=== PATIENT | male | born 1970 | race Caucasian/White ===

== ENCOUNTER → 2019-03-06 12:38 | Outpatient (CLI) | payer MEDICAID, SELFPAY ==
--- NOTE | 2019-03-06 12:42 | MR_ITS ---
MR knee LT wo con HISTORY: Pain ITS.REASON: TEAR OF LATERAL COLLATERAL LIGAMENT, INTERNAL DERANGMENT LT ORDERING PHYSICIAN: Rambo Rivas MD PATIENT AGE: 48 years Comparison: 12/23/2018 TECHNIQUE: Standard multiplanar multiecho sequences are performed without contrast. FINDINGS: No evidence of cruciate ligament tear. The fibers of the ACL are somewhat sparse inferiorly and could represent an old injury or sprain. The collateral ligaments, patellar tendon, and quadriceps tendon are unremarkable. The menisci are intact. No evidence of meniscal tear.. Patellar cartilage is preserved. There is a small to medium size knee joint effusion mainly in the suprapatellar region. No bone bruise or other significant anomalies evident. IMPRESSION: 1. No evidence of meniscal tear.. 2. The fibers of the ACL are sparse inferiorly and could represent an old injury or sprain of the ACL 3. Small medium sized knee joint effusion
== END ==
PROVIDERS: PCP Family Medicine; Visit Provider Family Medicine
DX: S83.422D Sprain of lateral collateral ligament of left knee, subsequent encounter (principal); M23.92 Unspecified internal derangement of left knee
CPT/HCPCS: 73721

== ENCOUNTER → 2020-07-16 12:00 | Outpatient (CLI) | payer OTHER, SELFPAY ==
[2020-07-16 13:04] LABS: Basophils # 0.1 K/mm3 (0-0.2); Basophils % 0.7 % (0.1-2.0); Eosinophils # 0.2 K/mm3 (0.0-0.4); Eosinophils % 2.1 % (0.1-12.0); Hematocrit 56.3 % (42.0-52.0); Hemoglobin 17.8 g/dL (14.1-18.0); Lymphocytes # 1.5 K/mm3 (0.7-4.5); Lymphocytes % 17.5 % (10-50); Mean Corpuscular HGB Conc 31.5 g/dL (31.8-35.4); Mean Corpuscular Volume 101.5 fl (80-94); Mean Platelet Volume 6.8 fl (7.4-10.4); Monocytes # 0.6 K/mm3 (0.1-1.0); Monocytes % 7.4 % (1.7-9.3); Neutrophils # 6.2 K/mm3 (1.8-7.8); Neutrophils % 72.3 % (37.0-80.0); Platelet Count 325 K/mm3 (142-424); Red Blood Count 5.55 M/mm3 (4.60-6.20); Red Cell Distribution Width 12.8 % (11.5-17.5); White Blood Count 8.6 K/mm3 (4.8-10.8)
[2020-07-16 14:27] LABS: Alanine Aminotransferase 21 U/L (12-78); Albumin Level 4.8 g/dl (3.5-5.0); Albumin/Globulin Ratio 1.8 (1.1-1.8); Alkaline Phosphatase 66 U/L (38-126); Anion Gap 13.4 mEq/L (5-15); Aspartate Amino Transferase 25 U/L (17-59); Bilirubin,Total 0.5 mg/dl (0.2-1.3); Blood Urea Nitrogen 14 mg/dl (9-20); Calcium 10.3 mg/dl (8.4-10.2); Carbon Dioxide 32 mmol/L (22.0-30.0); Chloride 99 mmol/L (98-107); Chol/HDL Ratio 2.2 (1-3.5); Cholesterol 194 mg/dl (140-200); Estimated Glomerular Filt Rate 79 ml/min (>60); GFR (African American) 95 ML/MIN (>60); Globulin 2.6 g/dL (1.3-3.2); Glucose 85 mg/dl (74-100); HDL Cholesterol 87 mg/dl (40-60); Potassium 4.4 mmoL/L (3.5-5.1); Sodium 140 mmol/L (136-145); Total Protein,Serum 7.4 g/dl (6.3-8.2); Triglycerides 97 mg/dl (30-150); VLDL Cholesterol 19 mg/dL (0-40)
[2020-07-16 14:38] LABS: Direct LDL Cholesterol 94.64 mg/dL (100-129)
[2020-07-16 14:43] LABS: 25-OH Vitamin D, Total 39.4 ng/mL (30-100)
[2020-07-16 15:53] LABS: Thyroid Stimulating Hormone 1.76 uIU/mL (0.465-4.68)
[2020-07-16 16:11] LABS: Vitamin B12 522 pg/mL (239-931)
[2020-07-16 16:34] LABS: Coronavirus 19 IgG Antibody Negative (Negative); Coronavirus 19 IgM Antibody Negative (Negative)
== END ==
PROVIDERS: Visit Provider Nurse Practitioner Family
DX: Z03.818 Encounter for observation for suspected exposure to other biological agents ruled out (principal); R53.83 Other fatigue; Z13.220 Encounter for screening for lipoid disorders; Z12.5 Encounter for screening for malignant neoplasm of prostate
CPT/HCPCS: 36415; 80053; 80061; 82306; 82607; 84443; 85025; 86328; G0103

== ENCOUNTER 2020-10-26 09:23 | Emergency (ER) | payer OTHER, SELFPAY ==
[2020-10-26 09:43] VITALS: BP 148/88; PULSE 68; RESP 16; TEMP 37.1; O2SAT 98; BMI 25.3
--- NOTE | 2020-10-26 09:44 | HMH.EDUTC ---
[facility] [place] Clinical Impression: Viral syndrome, Exposure to COVID-19 virus Disposition: Home, Self-Care Condition on Discharge: Good Instructions: DI for COVID-19 (Suspected or Confirmed ), Preventing the Spread of Coronavirus Discharge Instructions Additional Instructions: Drink plenty of fluids. Take tylenol for pain or fever. Return if you begin to have difficulty breathing. Follow up with your regular doctor. GO TO THE ER FOR ANY WORSENING SYMPTOMS Referrals: PCP,No [Primary Care Provider] - Time of Disposition: 09:45 Medical Decision Making - Medical Records Medical records reviewed: No: I reviewed the patient's medical records. - Liban Inquiry Pt receiving controlled substance: No Vital Signs: 10/26/20 09:43 10/26/20 09:47 Temperature 98.7 F 98.6 F Temperature Source Oral Oral Pulse Rate 65 Pulse Rate [Right] 68 Respiratory Rate 16 16 Blood Pressure 142/86 H Blood Pressure [Right Arm] 148/88 H Blood Pressure Mean [Right Arm] 108 Blood Pressure Source [Right Arm] Automatic Cuff Blood Pressure Position [Right Arm] Sitting 02 Sat by Pulse Oximetry 98 Oxygen Delivery Method Room Air [facility] H[place] - General Stated complaint: Covid test; sore throat;cough Time Seen by Provider: 10/26/20 09:44 - History of Present Illness Provider Complaint: He is here needing to be tested for covid. He c/o head ache and malaise. - Related Data Previous Rx's Medication Instructions Recorded Ibuprofen [Ibuprofen 800mg 800 mg PO Q8HP PRN #30 tab 12/23/18 Tablet] Allergies Allergy/AdvReac Type Severity Reaction Status Date / Time No Known Allergies Allergy Verified 10/26/20 09:36 [facility] History - Hepatitis A Screen Attestation statement:: This patient has been screened for Hepatitis A risk factors. I have reviewed the patient's past medical history: Yes Medical History: Denies:: Diabetes Mellitus Type 2, Hypertension Laterality Cases: Bilateral: Tonsillectomy Other Surgeries: Yes: Cholecystectomy - Social History Smoking Status: Current every day smoker Tobacco Type: smokeless tobacco # Packs/Day (cigarettes): 1 Alcohol Intake: never Occupational Status: other Housing: other ROS Obtained: Yes All systems reviewed & no additional complaints - Constitutional Constitutional: Denies body ache, Denies chills, Denies fever(s), Denies poor appetite, Reports malaise - Eyes Eyes: Reports system reviewed and no additional complaints, except as docu - ENT Ears, Nose, Mouth, and Throat: Reports system reviewed and no additional complaints, except as docu - Cardiovascular Cardiovascular: Reports system reviewed and no additional complaints, except as docu - Respiratory Respiratory: Reports system reviewed and no additional complaints, except as docu - Gastrointestinal Gastrointestingal: Reports: system reviewed and no additional complaints, except as docu Physical Exam - General General appearance: alert, in no apparent distress - Head Head exam: atraumatic, normocephalic, normal inspection - Eye Eye exam: Present: normal appearance, PERRL, EOMI - ENT ENT exam: Present: normal exam, normal oropharynx, mucous membranes moist, TM's normal bilaterally, normal external ear exam - Neck Neck exam: Present: normal inspection, full ROM, trachea midline. Absent: meningismus, lymphadenopathy - Chest Chest inspection: Present: normal inspection, symmetric chest wall rise. Absent: tenderness - Respiratory Respiratory exam: Present: normal lung sounds bilaterally. Absent: respiratory distress - Cardiovascular Cardiovascular exam: Present: regular rate, normal rhythm. Absent: JVD - Abdominal Exam Abdominal exam: Present: soft, normal bowel sounds. Absent: distention, tenderness, guarding - Extremities Exam Extremities exam: Present: normal inspection, full ROM, normal capillary refill. Absent: calf tenderness - Back Exam Back exam: P
[2020-10-26 09:47] VITALS: BP 142/86; PULSE 65; RESP 16; TEMP 37
== END 2020-10-26 09:47 | disposition home or self-care (01) ==
PROVIDERS: Emergency Provider Nurse Practitioner Family
DX: Z20.822 Contact with and (suspected) exposure to COVID-19 (principal); B34.9 Viral infection, unspecified; F17.290 Nicotine dependence, other tobacco product, uncomplicated
CPT/HCPCS: 99202; G0463; U0003

== ENCOUNTER → 2020-11-15 12:21 | Outpatient (CLI) | payer OTHER, SELFPAY ==
--- NOTE | 2020-11-15 12:26 | US_ITS ---
PROCEDURE: US TESTICULAR CLINICAL INDICATION: TESTICULAR SWELLING, LEFT, LEFT TESTICULAR PAIN COMPARISON: No exams were available for comparison FINDINGS: Testicles are normal size and shape. Bilateral testicular blood flow noted. No testicular mass apparent. There is a small left hydrocele. The epididymi have an unremarkable appearance. No varicocele or spermatocele. IMPRESSION: Small left hydrocele otherwise negative testicular ultrasound Dictated by: Javier Castro MD 11/15/2020 13:46 Javier Castro MD in [place] 11/15/2020 13:46
== END ==
PROVIDERS: PCP Nurse Practitioner Family; Visit Provider Nurse Practitioner Family
DX: N50.89 Other specified disorders of the male genital organs (principal); N50.812 Left testicular pain
CPT/HCPCS: 76870

== ENCOUNTER 2021-01-06 07:48 | Emergency (ER) | payer OTHER, SELFPAY ==
[2021-01-06 07:49] VITALS: BP 153/94; PULSE 65; RESP 18; TEMP 36.8; O2SAT 99; BMI 24.6
[2021-01-06 07:54] VITALS: BP 153/94; PULSE 68; O2SAT 99
--- NOTE | 2021-01-06 08:00 | XR_ITS ---
PROCEDURE: XR KNEE LT 2V CLINICAL INDICATION: pain COMPARISON: No exams were available for comparison FINDINGS: No fracture or dislocation. No lytic or blastic change. There is normal mineralization. There are mild osteoarthritic changes involving all 3 compartments. Other findings:Small enthesophyte at the tibial tuberosity IMPRESSION: Mild osteoarthritis. No significant change from 12/23/2018 Dictated by: Javier Castro MD 01/06/2021 09:09 Javier Castro MD in [place] 01/06/2021 09:09
[2021-01-06 08:20] VITALS: BP 141/90; PULSE 61; O2SAT 100
--- NOTE | 2021-01-06 08:31 | HMH.EDGENADL ---
ED Disposition Clinical Impression: Left lateral knee pain Disposition: Home, Self-Care Condition on Discharge: Good Instructions: DI for Knee Pain, How to Use Crutches, How to Use a Knee Immobilizer Additional Instructions: Knee immobilizer and crutches as needed. Ibuprofen for pain. Follow-up with Dr. Hernandez, orthopedics, call for appointment. Referrals: Nicole Benoit APRN [Primary Care Provider] - Rianna Hernandez MD [Physician] - - Critical Care Critical Care Time: No Attestation: On 01/06/21, the high probability of a clinically significant, sudden or life threatening deterioration of the following system(s) required my full and direct attention, intervention and personal management. The time I documented below is in addition to time spent performing reported procedures but includes the following listed in this critical care notation. Medical Decision Making - Liban Inquiry Pt receiving controlled substance: No Vital Signs: 01/06/21 07:49 01/06/21 07:54 01/06/21 08:20 Temperature 98.2 F Temperature Source Oral Pulse Rate 68 61 Pulse Rate [Left Radial] 65 Respiratory Rate 18 Blood Pressure 153/94 H 141/90 H Blood Pressure [Right Arm] 153/94 H Blood Pressure Mean 110 106 Blood Pressure Mean [Right Arm] 113 Blood Pressure Source [Right Arm] Automatic Cuff Blood Pressure Position [Right Arm] Sitting 02 Sat by Pulse Oximetry 99 99 100 Oxygen Delivery Method Room Air Orders (Tests/Meds): ORDERS Category Date Time Status Knee XR left 2 views [XR knee LT 2V] Stat Exams 01/06/21 08:00 Taken - Radiology Data #1 Image(s): Knee Image Reviewed: Yes I reviewed the patient's radiology image No acute process. Possible old Nicole-Schlatter disease. Medical Decision Narrative: Symptoms suggest most likely exacerbation of his prior lateral collateral ligament injury or meniscus injury General Adult HPI - General Chief complaint: PAIN Stated complaint: left knee pain, no recent accident Time Seen by Provider: 01/06/21 08:35 Mode of Arrival: Ambulatory Limitations: No Limitations Description of Symptoms (Recalled from ER Triage Doc. by RN): c/o left knee pain really bad over the last month. Prior injuries years ago but Denies any new injuries. - History of Present Illness HPI narrative: Complains of lateral left knee pain for a month. At times he will get a severe pain that makes his knee want to give out. It will wake him up at night as well when he tries to turn over. No recent injury, but says years ago he had an injury to his LCL, surgery was discussed but not performed. - Related Data Previous Rx's Medication Instructions Recorded Ibuprofen [Ibuprofen 800mg 800 mg PO Q8HP PRN #30 tab 12/23/18 Tablet] Allergies Allergy/AdvReac Type Severity Reaction Status Date / Time No Known Allergies Allergy Verified 10/26/20 09:36 [facility] History - Hepatitis A Screen Drug use history?: No High risk sexual behaviors?: No History of sexually transmitted infection?: No Currently employed?: No Childcare worker?: No Do you have indoor plumbing?: Yes Do you have electricity?: Yes Attestation statement:: This patient has been screened for Hepatitis A risk factors. I have reviewed the patient's past medical history: Yes Medical History: Denies:: Diabetes Mellitus Type 2, Hypertension Laterality Cases: Bilateral: Tonsillectomy Other Surgeries: Yes: Cholecystectomy - Social History Smoking Status: Current every day smoker Tobacco Type: smokeless tobacco # Packs/Day (cigarettes): 1 Alcohol Intake: current Alcohol Intake Frequency:: a few times a month Occupational Status: employed Housing: other ROS Obtained: Yes Systems reviewed as appropriate & no additional complaints - Constitutional Constitutional: Denies fever(s) - Musculoskeletal Musculoskeletal: Reports as per HPI, Reports joint pain Physical Exam - General Gene
[2021-01-06 08:59] VITALS: BP 141/91; PULSE 61; RESP 18; TEMP 36.8; O2SAT 100
== END 2021-01-06 09:01 | disposition home or self-care (01) ==
PROVIDERS: Emergency Provider Emergency Medicine; PCP Nurse Practitioner Family
DX: M25.562 Pain in left knee (principal); F17.290 Nicotine dependence, other tobacco product, uncomplicated
CPT/HCPCS: 73560; 99282

== ENCOUNTER → 2021-01-31 12:15 | Outpatient (CLI) | payer OTHER, SELFPAY ==
--- NOTE | 2021-01-31 12:20 | XR_ITS ---
PROCEDURE: XR KNEE LT 4V CLINICAL INDICATION: LT knee Pain COMPARISON: CR [id number] KNEE-3 VIEWS-LT from 10/12/2015 CR [id number] XR knee LT 3V from 12/23/2018 CR XR KNEE LT 2V from 01/06/2021 FINDINGS: No fracture or dislocation. No lytic or blastic change. There is normal mineralization. Minimal osteoarthritic changes involving all 3 compartments similar to the previous exam. Other findings:None. IMPRESSION: Minimal osteoarthritis. No change with no acute finding Dictated by: Javier Castro MD 01/31/2021 15:58 Javier Castro MD in [place] 01/31/2021 15:58
== END ==
PROVIDERS: PCP Nurse Practitioner Family; Visit Provider Orthopaedic Surgery
DX: M25.562 Pain in left knee (principal)
CPT/HCPCS: 73564

== ENCOUNTER 2021-02-27 20:53 | Emergency (ER) | payer OTHER, SELFPAY ==
--- NOTE | 2021-02-27 20:50 | ECG_ITS ---
APPROVED REPORT Exam: Resting ECG HR:89 bpm ECG Measurements Heart Rate 89 AXES PA 144 P 86 QRSd 94 QRS 87 QT 368 T 71 QTc 447 Conclusion Normal sinus rhythm with sinus arrhythmia Normal ECG Electronically signed by : Rambo Levine, 03/01/2021 08:21:52
[2021-02-27 20:53] VITALS: BP 118/86; PULSE 95; RESP 24; TEMP 36.6; O2SAT 95; BMI 23.7
--- NOTE | 2021-02-27 20:58 | XR_ITS ---
PROCEDURE INFORMATION: Exam: XR Chest Exam date and time: 02/27/2021 8:58 PM Age: 50 years old Clinical indication: Shortness of breath; Patient HX: SOA for 1 hr, chest heaviness, smoker; Additional info: SOB TECHNIQUE: Imaging protocol: XR of the chest. Views: 1 view. COMPARISON: CR CXR CHEST(2 VIEWS-NOT PORTABLE) 01/29/2017 7:17 AM FINDINGS: Lungs: Emphysema. Relatively mild fibrotic changes at the lung bases. Ground-glass opacity at the right lower lung. No dense consolidation. Pleural spaces: Unremarkable. No pleural effusion. No pneumothorax. Heart/Mediastinum: Unremarkable. No cardiomegaly. Bones/joints: Unremarkable. IMPRESSION: Ground-glass opacity at the right lower lung appears to be new in the interval. Consider pneumonia in the appropriate clinical setting.
[2021-02-27 21:00] VITALS: BP 126/88; PULSE 84; O2SAT 93
[2021-02-27 21:01] LABS: ABG Base Excess -2.9 mmol/L (-2.4-2.3); ABG HCO3 21.6 mmhg (22.0-26.0); ABG Oxygen Saturation 94 % (90-100); ABG PCO2 34.4 mmhg (35.0-45.0); ABG PH 7.42 mmol/L (7.35-7.45); ABG PO2 62.8 mmhg (80-100); ABG TCO2 22.7 mmhg (23-27); Allen's Test Y; Oxygen R/A %; Source R/R
[2021-02-27 21:07] LABS: Basophils # 0.1 K/mm3 (0-0.2); Basophils % 0.6 % (0.1-2.0); Eosinophils # 0.4 K/mm3 (0.0-0.4); Eosinophils % 3.9 % (0.1-12.0); Hematocrit 49.3 % (42.0-52.0); Hemoglobin 16.5 g/dL (14.1-18.0); Lymphocytes # 2.7 K/mm3 (0.7-4.5); Lymphocytes % 29.9 % (10-50); Mean Corpuscular HGB Conc 33.4 g/dL (31.8-35.4); Mean Corpuscular Hemoglobin 32.3 pg (27.0-31.2); Mean Corpuscular Volume 96.7 fl (80-94); Mean Platelet Volume 7.2 fl (7.4-10.4); Monocytes # 0.5 K/mm3 (0.1-1.0); Monocytes % 5.2 % (1.7-9.3); Neutrophils # 5.4 K/mm3 (1.8-7.8); Neutrophils % 60.4 % (37.0-80.0); Platelet Count 351 K/mm3 (142-424); Red Cell Distribution Width 13.1 % (11.5-17.5); White Blood Count 8.9 K/mm3 (4.8-10.8)
[2021-02-27 21:18] LABS: Alanine Aminotransferase 23 U/L (12-78); Albumin Level 4.3 g/dl (3.5-5.0); Albumin/Globulin Ratio 1.7 (1.1-1.8); Alkaline Phosphatase 63 U/L (38-126); Anion Gap 14.6 mEq/L (5-15); Aspartate Amino Transferase 33 U/L (17-59); Bilirubin,Total 0.3 mg/dl (0.2-1.3); Blood Urea Nitrogen 9 mg/dl (9-20); Calcium 8.8 mg/dl (8.4-10.2); Carbon Dioxide 22 mmol/L (22.0-30.0); Chloride 110 mmol/L (98-107); Creatinine Clearance Estimated 97 mL/min (50-200); Estimated Glomerular Filt Rate 71 ml/min (>60); GFR (African American) 85 ML/MIN (>60); Globulin 2.6 g/dL (1.3-3.2); Glucose 101 mg/dl (74-100); Potassium 3.6 mmoL/L (3.5-5.1); Sodium 143 mmol/L (136-145); Total Protein,Serum 6.9 g/dl (6.3-8.2)
[2021-02-27 21:23] LABS: C-Reactive Protein 2.2 mg/L (0-4)
[2021-02-27 21:30] VITALS: BP 121/75; PULSE 79; O2SAT 97
[2021-02-27 21:32] LABS: Erythrocyte Sedimentation Rate 5 mm/hr (0-20)
--- NOTE | 2021-02-27 21:34 | HMH.EDSOB ---
ED Disposition Clinical Impression: Chest pain at rest Disposition: Left Against Medical Advice Condition on Discharge: Fair Instructions: DI for Chest Pain Additional Instructions: see pcp or card in am and return to ed if needed or change mind Referrals: Provider,Referral, [Referring] - - Critical Care Critical Care Time: No Attestation: On 02/27/21, the high probability of a clinically significant, sudden or life threatening deterioration of the following system(s) required my full and direct attention, intervention and personal management. The time I documented below is in addition to time spent performing reported procedures but includes the following listed in this critical care notation. Medical Decision Making - Medical Records Medical records reviewed: Yes: I reviewed the patient's medical records. - Liban Inquiry Pt receiving controlled substance: No Vital Signs: 02/27/21 20:53 02/27/21 21:00 02/27/21 21:30 Temperature 97.9 F Temperature Source Oral Pulse Rate 84 79 Pulse Rate [Right] 95 H Respiratory Rate 24 Blood Pressure 126/88 121/75 Blood Pressure [Right Arm] 118/86 Blood Pressure Mean [Right Arm] 96 02 Sat by Pulse Oximetry 95 93 L 97 Oxygen Delivery Method Room Air Room Air Room Air - Lab Data Lab results reviewed: Yes: I reviewed the patient's lab results. Lab Results 02/27/21 21:00: WBC 8.9, RBC 5.10, Hgb 16.5, Hct 49.3, MCV 96.7 H, MCH 32.3 H, MCHC 33.4, RDW 13.1, Plt Count 351, MPV 7.2 L, Neut % (Auto) 60.4, Lymph % (Auto) 29.9, Bledsoe % (Auto) 5.2, Eos % (Auto) 3.9, Baso % (Auto) 0.6, Neut # (Auto) 5.4, Lymph # (Auto) 2.7, Bledsoe # (Auto) 0.5, Eos # (Auto) 0.4, Baso # (Auto) 0.1 02/27/21 21:00: Sodium 143, Potassium 3.6, Chloride 110 H, Carbon Dioxide 22, Anion Gap 14.6, BUN 9, Creatinine 1.10, Estimated Creat Clear 97, Estimated GFR 71, Est GFR ( Amer) 85, Glucose 101 H, Calcium 8.8, Total Bilirubin 0.3, AST 33, ALT 23, Alkaline Phosphatase 63, Troponin I < 0.01, C-Reactive Protein 2.2, Total Protein 6.9, Albumin 4.3, Globulin 2.6, Albumin/Globulin Ratio 1.7 02/27/21 21:00: Specimen Source R/r, O2 % R/a, ABG pH 7.42, ABG pCO2 34.4 L, ABG pO2 62.8 L, ABG HCO3 21.6 L, ABG Total CO2 22.7 L, ABG O2 Saturation 94, ABG Base Excess -2.9 L, Javier Test Y 02/27/21 21:00: ESR 5 02/27/21 21:00: Procalcitonin 0.046 Result diagrams: 02/27/21 21:00 02/27/21 21:00 Orders (Tests/Meds): ED MEDICATIONS Generic Name Dose Route Start Last Admin Trade Name Freq PRN Reason Stop Dose Admin Sodium Chloride 1,000 mls @ 999 mls/hr 02/27/21 21:15 02/27/21 21:15 Sod Chlor 0.9% 1000ml Bag IV 02/27/21 22:15 999 mls/hr .Q1H1M CRUZ Administration Discontinued Medications Generic Name Dose Route Start Last Admin Trade Name Freq PRN Reason Stop Dose Admin Albuterol/Ipratropium 3 ml 02/27/21 21:13 02/27/21 21:15 Ipratropium/Albuterol 3 Ml Neb IH 02/27/21 21:14 3 ml ONCE ONE Administration Aspirin 324 mg 02/27/21 21:13 02/27/21 21:15 Aspirin 81mg Chewable Tablet PO 02/27/21 21:14 324 mg ONCE ONE Administration Methylprednisolone Sodium Succinate 125 mg 02/27/21 21:13 02/27/21 21:15 Methylprednisolone Sod Succ 125mg Vial IV 02/27/21 21:14 125 mg ONCE ONE Administration Morphine Sulfate 2 mg 02/27/21 21:24 02/27/21 21:25 Morphine 2mg/Ml Syringe IV 02/27/21 21:25 2 mg ONCE ONE Administration Nitroglycerin 0.4 mg 02/27/21 21:13 02/27/21 21:15 Nitroglycerin 0.4mg Sl Tablet SL 02/27/21 21:14 1 tab ONCE ONE Administration Nitroglycerin 1 gm 02/27/21 22:12 Nitroglycerin 1 Gm Ointment TD 02/27/21 22:13 ONCE ONE ORDERS Category Date Time Status Chest XR -- portable [XR chest portable] Stat Exams 02/27/21 20:58 Taken Blood alcohol [Ethyl Alcohol] Stat Lab 02/27/21 21:00 Received Rapid PCR Covid and Flu A/B Stat Lab 02/27/21 22:11 Ordered Troponin I Q3H Lab 02/27/21 23:58 Ordered Troponin I
[2021-02-27 21:37] LABS: Procalcitonin 0.046 ng/mL (0.0-2.0)
[2021-02-27 21:49] LABS: Troponin I < 0.01 ng/ml (0.00-0.034)
[2021-02-27 22:15] LABS: Ethyl Alcohol 185 mg/dl (0-10)
--- NOTE | 2021-02-27 22:17 | PC.NURSE ---
Anup and me spoke with pt and told pt risk of and complications of refusing to be admitted for angina. pt verbalize understanding and decided to leave AMA
[2021-02-27 22:20] VITALS: BP 120/73; PULSE 81; RESP 22; TEMP 36.6; O2SAT 96
== END 2021-02-27 22:22 | disposition left against medical advice (07) ==
PROVIDERS: Emergency Provider Emergency Medicine; PCP Nurse Practitioner
DX: R07.9 Chest pain, unspecified (principal); R06.02 Shortness of breath; F17.200 Nicotine dependence, unspecified, uncomplicated
CPT/HCPCS: 71045; 80053; 82803; 84145; 84484; 85025; 85651; 86140; 93005; 96365; 96375; 99282

== ENCOUNTER → 2021-03-10 07:09 | Outpatient (CLI) | payer OTHER, SELFPAY ==
--- NOTE | 2021-03-10 | CA_ITS ---
APPROVED REPORT Exam: Pharmacologic Technologist: Ama Celis, Ht: 6 ft 2 in Wt: 195 lbs BSA: 2.15 m2 HR: 52 bpm BP: 128/86 mmHg Rhythm: SINUS HARVEY, ST ABNS INFERIORLY Medical History Medical History: Hyperlipidemia, Smoking Medications: BisOPROLOL,,,,, Nitroglycerin,,,,, Levofloxacin,,,,, AtorvaASTATIN,,,,, FumERATE,,,,, Allergies: No known drug allergies Cardiac Risk Factors: Hyperlipidemia, Smoking Stress Test Details Test: LEXISCAN HR Resting HR: 55 bpm Max Heart Rate (APMHR): 168.226803 bpm Max HR Achieved: 97 bpm Target HR (85% APMHR): 142.311466 bpm % of APMHR: 57.74 Recovery HR: 63 bpm BP Resting BP: 128.0/86.0 mmHg Max BP: 151.0/88.0 mmHg Recovery BP: 147.0/83.0 mmHg ECG Resting ECG: SINUS HARVEY, ST ABNS INFERIORLY Clinical Exercise duration: 04:06 min Highest Stage Achieved: Stress ECG Conclusion PT HAD SOA, MILD MALAISE, NO CP. NO ARRHYTHMIAS/ECTOPYS. NO SIGNIFICANT ST-T CHANGES. UNREMARKABLE LEXISCAN STRESS. MYOVIEW IMAGES REPORTED SEPARATELY. Electronically signed by : Bairon Bravo, 03/10/2021 11:01:42
--- NOTE | 2021-03-10 | CA_ITS ---
APPROVED REPORT EXAM: Comprehensive 2D, Doppler, and color-flow Echocardiogram Product Mgmt Dev Manager: Nona Eddy RT(R) Ht: 5 ft 2 in Wt: 195lbs BSA: 1.89 BP: 141/75 mmHg Indications: CP, COPD, HTN, hyperlipidemia, abn EKG, COPD 2D Dimensions LVOT 2.02 cm (M/F) 1.5-2.5 LA Volume 23.70 mL LA Volume Index 12.53 mL/m2 (M/F) 16-34 M-Mode Dimensions RVDd 1.20 cm (0.9-2.6) LA Diam 2.60 cm (1.9-4.0) LVDd 5.39 cm (3.5-5.7) Ao Diam 2.81 cm (2.0-3.7) LVDs 4.15 cm (3.5-5.7) IVSd 0.61 cm (0.6-1.1) PWd 0.63 cm (0.6-1.1) EF (Teich) 45.70% FS 23.00% EDV (Teich) 140.70 mL ESV (Teich) 76.40 mL LV Diastology E Decel Time 180.00 (160-240 msec) E/A Ratio 1.6 MED E' 13.30 (< 7 cm/sec) E'/MED E' Ratio 5.80 (>14) LAT E' 12.60 (<10 cm/sec) E/LAT E' Ratio 6.13 (>14) Mitral Valve MV E Max Porfirio. 77.00 (40-130 cm/s) MV A Velocity 49.00 (40-130 cm/s) E/A Ratio 1.57 MV Decel. Time 180.00 (160-240 ms) MV PHT 53.00 ms Left Ventricle Enlarged, left ventricle is normal size, mild concentric left ventricular hypertrophy, visually estimated ejection fraction 55% with no regional wall motion abnormality, diastolic parameters are inconclusive. Right Ventricle Right atrium and right ventricle are normal size and contractility. Aortic Valve Aortic valve is minimally thickened and fibrosed, there is no aortic stenosis or aortic insufficiency. Mitral Valve Mitral valve grossly normal, there is trace mitral regurgitation. Tricuspid Valve Tricuspid valve is grossly normal, there is trace tricuspid regurgitation, tricuspid regurgitation jet velocity is inadequate for calculation of the right ventricular systolic pressure. Pulmonic Valve Pulmonic valve is poorly visualized. Great Vessels Aortic root is normal size. Pericardium No significant pericardial effusion noted. Conclusion 1. Mildly low left atrium, normal left ventricular size, mild concentric left ventricular hypertrophy, visually estimated ejection fraction 55% with no regional wall motion abnormality, diastolic parameters are inconclusive. 2. Trace mitral and tricuspid regurgitation. 3. No significant pericardial effusion noted. Electronically signed by : Bairon Bravo, 03/10/2021 15:32:49
--- NOTE | 2021-03-10 07:09 | NM_ITS ---
APPROVED REPORT Exam: Nuclear Stress Test Indication: short of breath..fatigue Patient Location: Outpatient Stress Tech: Ama Celis [place] Tech:Maria Del Carmen ShermanGARRICK RT(R)(N) Ht: 6 ft 4 in Wt: 197 lbs HR: 52 bpm BP: 128/86 mmHg BSA: 2.20 m2 BMI: 23.9 History: short of breath..fatigue Procedure: Patient received a 0.4 mg of intravenous Lexiscan, resting heart rate 52 bpm, resting blood pressure 128/86 mmHg, with Lexiscan maximum heart rate achived was 88 bpm which is Less than 85 % of the maximum predicted heart rate and blood pressure was 151/88 mmHg. With Lexiscan, patient denied any complaint of chest pain. Electrocardiogram Resting electrocardiogram showed sinus rhythm, with Lexiscan there is less than 1.[address] segment depression noted from the baseline EKG. The EKG portion of the Lexiscan is nondiagnostic. Cardiac Stress and Resting SPECT Images: Cardiac Stress and Resting SPECT images were obtained using technetium 99m Myoview 30.8 mCi stress and 10.87 mCi at rest. Gated SPECT for analysis of segmental wall motion and calculation of the ejection fraction also done. Prone images were also obtained. Cardiac stress and resting SPECT images show uniform myocardial activity without segmental perfusion abnormality, computer derived ejection fraction 45% with no regional wall motion abnormality, right ventricle is normal size and contractility. Conclusion: 1. The EKG portion of the Lexiscan is nondiagnostic. 2. No scintigraphic evidence of reversible ischemia seen, computer derived ejection fraction is 45% with no regional wall motion abnormality, right ventricle is normal size and contractility Electronically signed by : Bairon Bravo, 03/10/2021 15:11:08
== END ==
PROVIDERS: PCP Nurse Practitioner Family; Visit Provider Nurse Practitioner Family
DX: R06.00 Dyspnea, unspecified (principal); R07.89 Other chest pain; R94.31 Abnormal electrocardiogram [ECG] [EKG]; J18.9 Pneumonia, unspecified organism; R40.0 Somnolence; F17.200 Nicotine dependence, unspecified, uncomplicated
CPT/HCPCS: 78452; 93017; 93306; A9502; J2785

== ENCOUNTER → 2021-04-05 14:08 | Outpatient (CLI) | payer OTHER, SELFPAY ==
--- NOTE | 2021-04-05 14:08 | CT_ITS ---
PROCEDURE: CT CHEST W CON CLINCAL INDICATION: dyspnea, chest pain COMPARISON: No exams were available for comparison TECHNIQUE: IV Contrast: 75ml Isovue 370 Axial images obtained with sagittal and coronal reformats. All CT scans at the facility use one or more dose reduction, viz: automated exposure control, ma/kV adjustment per patient size (including targeted exams where dose is matched to indication, i.e. head), or iterative reconstruction technique. FINDINGS: HEART AND MEDIASTINAL STRUCTURES: The heart size is normal. No pericardial effusions. The thoracic aorta is unremarkable. LUNGS AND PLEURAL SPACES: There evidence of extensive centrilobular emphysematous changes. Large bullae noted in the right upper lobe. Focal areas of scarring are noted in the right upper lobe. No lobar consolidation, pleural effusions or pneumothorax. The central tracheobronchial tree is patent. Minor mucous debris is noted in the dependent portion of the lower trachea. BONY STRUCTURES: Visualized asses structures are unremarkable UPPER ABDOMEN: Cholecystectomy is noted. Small hiatus hernia is noted. Otherwise the visualized upper abdominal solid organs are unremarkable. ADDITIONAL FINDINGS: The thyroid gland is unremarkable. IMPRESSION: Focal area of scarring with bulla in the right upper lobe. Centrilobular emphysematous changes bilaterally. No acute intrathoracic abnormality. Dictated by: Francoise Lima 04/05/2021 16:16 Francoise Lima in [facility] 04/05/2021 16:16
== END ==
PROVIDERS: PCP Nurse Practitioner Family; Visit Provider Nurse Practitioner Family
DX: R06.00 Dyspnea, unspecified (principal); R07.89 Other chest pain; R94.31 Abnormal electrocardiogram [ECG] [EKG]; J18.9 Pneumonia, unspecified organism; J44.9 Chronic obstructive pulmonary disease, unspecified; E78.5 Hyperlipidemia, unspecified; F17.200 Nicotine dependence, unspecified, uncomplicated; R40.0 Somnolence
CPT/HCPCS: 71260; Q9967

== ENCOUNTER → 2021-04-19 08:10 | Outpatient (CLI) | payer OTHER, SELFPAY | PROVIDERS: PCP Nurse Practitioner Family; Visit Provider Nurse Practitioner Family | DX: R06.00 Dyspnea, unspecified (principal); F17.200 Nicotine dependence, unspecified, uncomplicated | CPT/HCPCS: 94060; 94726; 94729 ==

== ENCOUNTER → 2021-05-26 14:33 | Outpatient (CLI) | payer OTHER, SELFPAY ==
[2021-05-26 15:27] LABS: Basophils # 0.1 K/mm3 (0-0.2); Basophils % 0.8 % (0.1-2.0); Eosinophils # 0.2 K/mm3 (0.0-0.4); Eosinophils % 2.6 % (0.1-12.0); Hematocrit 53.5 % (42.0-52.0); Hemoglobin 17.3 g/dL (14.1-18.0); Lymphocytes % 22.7 % (10-50); Mean Corpuscular HGB Conc 32.3 g/dL (31.8-35.4); Mean Corpuscular Hemoglobin 32.8 pg (27.0-31.2); Mean Corpuscular Volume 101.6 fl (80-94); Mean Platelet Volume 8.1 fl (7.4-10.4); Monocytes # 0.6 K/mm3 (0.1-1.0); Monocytes % 7.3 % (1.7-9.3); Neutrophils # 5.9 K/mm3 (1.8-7.8); Neutrophils % 66.7 % (37.0-80.0); Platelet Count 349 K/mm3 (142-424); Red Blood Count 5.27 M/mm3 (4.60-6.20); Red Cell Distribution Width 13.4 % (11.5-17.5); White Blood Count 8.8 K/mm3 (4.8-10.8)
[2021-05-28 10:31] LABS: Alpha-1-Antitrypsin 124 mg/dL (101-187)
[2021-05-31 15:13] LABS: D002-IgE D farinae 0.15 kU/L (Class 0/I); E001-IgE Cat Dander <0.10 kU/L (Class 0); E005-IgE Dog Dander 0.51 kU/L (Class I); E072-IgE Mouse Urine <0.10 kU/L (Class 0); G002-IgE Bermuda Grass <0.10 kU/L (Class 0); G006-IgE Timothy Grass 0.59 kU/L (Class II); I006-IgE Cockroach, German <0.10 kU/L (Class 0); Immunoglobulin E, Total 473 IU/mL (6-495); M001-IgE Penicillium chrysogen <0.10 kU/L (Class 0); M002-IgE Cladosporium herbarum <0.10 kU/L (Class 0); M003-IgE Aspergillus fumigatus <0.10 kU/L (Class 0); M006-IgE Alternaria alternata <0.10 kU/L (Class 0); T001-IgE Maple/Box Elder 0.56 kU/L (Class II); T003-IgE Common Silver Birch <0.10 kU/L (Class 0); T006-IgE Cedar, Mountain <0.10 kU/L (Class 0); T007-IgE Oak, White <0.10 kU/L (Class 0); T008-IgE Elm, American <0.10 kU/L (Class 0); T010-IgE Walnut <0.10 kU/L (Class 0); T011-IgE Maple Leaf Sycamore <0.10 kU/L (Class 0); T014-IgE Cottonwood <0.10 kU/L (Class 0); T015-IgE Ash, White <0.10 kU/L (Class 0); T022-IgE Pecan, Hickory <0.10 kU/L (Class 0); T070-IgE White Mulberry <0.10 kU/L (Class 0); W001-IgE Ragweed, Short 0.53 kU/L (Class I); W011-IgE Thistle, Russian <0.10 kU/L (Class 0); W014-IgE Pigweed, Common <0.10 kU/L (Class 0); W018-IgE Sheep Sorrel <0.10 kU/L (Class 0)
[2021-05-31 23:08] LABS: QuantiFERON-TB Gold Plus Negative (Negative)
[2021-06-11 16:12] LABS: Antinuclear Antibodies (ANA) NEGATIVE
== END ==
PROVIDERS: Visit Provider Internal Medicine Pulmonary Disease
DX: J45.909 Unspecified asthma, uncomplicated (principal); J84.9 Interstitial pulmonary disease, unspecified
CPT/HCPCS: 82103; 82785; 85025; 86003; 86038; 86225; 86235; 86480

== ENCOUNTER → 2021-11-24 13:47 | Outpatient (CLI) | payer OTHER, SELFPAY | PROVIDERS: PCP Nurse Practitioner Family; Visit Provider Internal Medicine Pulmonary Disease | DX: R06.02 Shortness of breath (principal) | CPT/HCPCS: 94060 ==

== ENCOUNTER → 2022-04-13 09:34 | Outpatient (CLI) | payer OTHER, SELFPAY ==
--- NOTE | 2022-04-13 09:39 | CT_ITS ---
FINAL REPORT CLINICAL HISTORY: lung cancer screening smoker. 1.5 ppd x 30 years copd, no family hx FINDINGS: CTDI vol (mGy): 2.[address] images of the chest were obtained using the low-dose protocol for screening. There is no evidence of mediastinal or hilar mass or adenopathy. No axillary mass or adenopathy is identified. On the lung window images, no pulmonary mass or suspicious nodule is identified. There is emphysema with prominent, but stable, right apical scarring. IMPRESSION: Lung RADS category 1 . Recommend 12 month followup low-dose CT for further evaluation. Reviewed, Interpreted and Dictated by Caitlin Meraz MD Transcribed by Bridgette Barnard Authenticated and [facility]
--- NOTE | 2022-04-13 09:40 | XR_ITS ---
FINAL REPORT CLINICAL HISTORY: CERVICAL PAIN FINDINGS: CERVICAL SPINE Multiple views of the cervical spine were obtained. There is no acute fracture or acute malalignment. There is multilevel degenerative disc disease most pronounced at C4-C5. The precervical soft tissues are normal. IMPRESSION: Multilevel degenerative disc disease. Reviewed, Interpreted and Dictated by Caitlin Meraz MD Transcribed by Migdalia Morales Authenticated and [facility]
== END ==
PROVIDERS: PCP Nurse Practitioner Family; Visit Provider Internal Medicine Pulmonary Disease
DX: M54.2 Cervicalgia (principal); Z87.891 Personal history of nicotine dependence; Z12.2 Encounter for screening for malignant neoplasm of respiratory organs
CPT/HCPCS: 71271; 72050

== ENCOUNTER 2022-09-22 16:00 | Outpatient (RCR) | payer OTHER, SELFPAY | END 2022-09-22 16:05 | disposition home or self-care (01) | LOC: PT 16:00 | PROVIDERS: PCP Nurse Practitioner Family; Visit Provider Pain Medicine Interventional Pain Medicine | DX: M50.30 Other cervical disc degeneration, unspecified cervical region (principal); Z79.899 Other long term (current) drug therapy | CPT/HCPCS: 97163 ==

== ENCOUNTER 2023-05-25 04:06 | Emergency (ER) | payer OTHER, SELFPAY ==
[2023-05-25 04:14] VITALS: BP 148/87; PULSE 93; RESP 20; TEMP 36.8; O2SAT 92; BMI 25.9
--- NOTE | 2023-05-25 04:14 | XR_ITS ---
PROCEDURE INFORMATION: Exam: XR Chest Exam date and time: 05/25/2023 4:19 AM Age: 53 years old Clinical indication: Condition or disease; Lung condition and disease; Copd; Shortness of breath; Additional info: SOA, copd TECHNIQUE: Imaging protocol: Radiologic exam of the chest. Views: 1 view. COMPARISON: CT LUNG SCREENING 04/13/2022 10:02 AM FINDINGS: Lungs: Unremarkable. No consolidation. Pleural spaces: Unremarkable. No pleural effusion. No pneumothorax. Heart/Mediastinum: Unremarkable. No cardiomegaly. Bones/joints: Unremarkable. IMPRESSION: No acute findings.
--- NOTE | 2023-05-25 04:37 | HMH.EDGENADL ---
Discharge Plan Disposition Patient Disposition: Home, Self-Care Condition: Good Prescriptions Prescriptions: New azithromycin 250 mg tablet See Rx Instructions .ROUTE .COMPLEX Qty: 6 0RF Rx Instructions: For 250 mg dose pack: take 500 mg today (day 1), then 250 mg for 4 days (days 2-5) prednisone 50 mg tablet 50 mg PO DAILY 5 Days Qty: 5 0RF No Action albuterol sulfate 90 mcg/actuation HFA aerosol inhaler 1 inh INHALATION Q6H PRN (Reason: shortness of breath or wheezing) 90 Days Qty: 8.5 3RF fluticasone propion-salmeterol [Advair Diskus] 500-50 mcg/dose blister with device 1 inh IH BID Qty: 180 3RF Spiriva with HandiHaler 18 mcg capsule, w/inhalation device 1 cap IH DAILY 90 Days Qty: 90 3RF Rx Instructions: puncture 1 cap using device; one dose = 2 inhalations Referrals Follow up/Referrals: Provider,Referral, MD [Primary Care Provider] - See instructions Activity Restrictions/Add. Instructions Additional Instructions/Restrictions: Please follow-up with your primary care provider. Please take steroids and azithromycin as prescribed. Please return to the emergency department if you develop any new or worsening symptoms or become concerned for your health. Clinical Impressions Clinical Impression: Acute exacerbation of chronic obstructive pulmonary disease Discharge ED Provider: Shaka Cadena General Adult HPI General Chief complaint: Shortness of Breath/Dyspnea Stated complaint: Short of breath Time Seen by Provider: 05/25/23 04:09 History of Present Illness HPI narrative: 53-year-old male history of COPD presents with worsening shortness of breath. He reports it is chronic in nature but acutely worsened this morning. He uses nebulizer at home without improvement. EMS arrived and provided him with a nebulizer treatment after which he improved but was not well enough to stay home and presents to the ED. He was noted to be hypoxic in the 80s on initial EMS evaluation, improved to the 90s after nebulizer treatment. He reports no recent fever, no significant increase in cough or sputum production. Denies any chest pain. Related Data Previous Rx's Medication Instructions Recorded albuterol sulfate 90 mcg/actuation 1 inh inhalation Q6H PRN shortness 11/29/21 aerosol inhaler of breath or wheezing 90 days #8.5 grams fluticasone 500 mcg-salmeterol 50 1 inh inhalation BID #180 ea 03/01/22 mcg/dose blistr powdr for inhalation (Advair Diskus) tiotropium bromide 18 mcg capsule 1 cap inhalation DAILY 90 days #90 03/01/22 with inhalation device (Spiriva puffs with HandiHaler) azithromycin 250 mg tablet See Rx Instructions PO .COMPLEX #6 05/25/23 tabs prednisone 50 mg tablet 50 mg PO DAILY 5 days #5 tabs 05/25/23 Allergies Allergy/AdvReac Type Severity Reaction Status Date / Time No Known Allergies Allergy Verified 03/01/22 13:52 [facility] Disclaimer: The information contained in this section may have been updated after the patient was seen, as this information can be updated by other users. Medical History (Updated 05/25/23 @ 05:08 by Shaka Cadena MD) Abnormal EKG Chest pain COPD (chronic obstructive pulmonary disease) Daytime somnolence Dyspnea HLD (hyperlipidemia) Pneumonia Tobacco dependence syndrome Social History Smoking Status: Current every day smoker tobacco type: cigarettes packs per day: 1 and smokeless tobacco alcohol intake: never current occupational status: employed Travel in the last 8 weeks: None housing: other ROS Obtained: Yes All systems reviewed & no additional complaints except as documented Physical Exam General General appearance: alert and in no apparent distress Head Head exam: atraumatic and normocephalic Eye Eye exam: Present normal appearance, PERRL and EOMI ENT ENT exam: Present normal oropharynx and normal external ear exam Neck Neck exam: Present normal inspection and full ROM Chest Ch
[2023-05-25 05:23] VITALS: BP 140/91; PULSE 83; RESP 18; TEMP 36.9; O2SAT 95
== END 2023-05-25 05:55 | disposition home or self-care (01) ==
PROVIDERS: Emergency Provider Emergency Medicine
DX: J44.1 Chronic obstructive pulmonary disease with (acute) exacerbation (principal); E78.5 Hyperlipidemia, unspecified; F17.210 Nicotine dependence, cigarettes, uncomplicated
CPT/HCPCS: 71045; 96374; 99284

== ENCOUNTER 2023-12-11 19:23 | Outpatient (CLI) | payer OTHER, SELFPAY ==
[2023-12-11 16:36] LABS: Coronavirus 19, PCR Not Detected (NotDetected); Influenza A, PCR Not Detected (NotDetected)
[2023-12-11 17:15] LABS: Influenza B, PCR Detected (NotDetected)
== END 2023-12-11 23:59 ==
LOC: LAB.DROPOF 19:23
PROVIDERS: PCP Nurse Practitioner Family; Visit Provider Nurse Practitioner Family
DX: R05.9 Cough, unspecified (principal); R50.9 Fever, unspecified; R06.02 Shortness of breath; J10.1 Influenza due to other identified influenza virus with other respiratory manifestations
CPT/HCPCS: 87636

== ENCOUNTER 2023-12-19 10:01 | Outpatient (CLI) | payer OTHER, SELFPAY ==
[2023-12-19 10:40] VITALS: PULSE 83; PULSE 87
[2023-12-19] MEDS: ALBUTEROL 0.083% 2.5 MG/3 ML NEB IH (10:40)
== END 2023-12-19 23:59 ==
LOC: RT 10:02
PROVIDERS: PCP Nurse Practitioner Family; Visit Provider Nurse Practitioner Family
DX: J44.9 Chronic obstructive pulmonary disease, unspecified (principal); J43.9 Emphysema, unspecified
CPT/HCPCS: 94060; 94640

== ENCOUNTER 2024-03-18 08:39 | Outpatient (CLI) | payer OTHER, SELFPAY ==
--- NOTE | 2024-03-18 08:41 | XR_ITS ---
FINAL REPORT CLINICAL HISTORY: lower back pain, left sciatica COMPARISON: None FINDINGS: 3 views of the lumbar spine were obtained. There is no evidence of fracture. There is no malalignment. There is mild degenerative change. Mild vascular calcifications are identified. IMPRESSION: Mild degenerative change without acute bony abnormality. Reviewed, Interpreted and Dictated by Bacilio Adler III, MD Transcribed by Lexi Berry Authenticated and . [facility]
== END 2024-03-18 23:59 | disposition home or self-care (01) ==
LOC: RAD 08:39
PROVIDERS: PCP Nurse Practitioner Family; Visit Provider Nurse Practitioner Family
DX: M54.32 Sciatica, left side (principal); M54.50 Low back pain, unspecified
CPT/HCPCS: 72100

== ENCOUNTER 2024-05-21 21:01 | Emergency (ER) | payer OTHER, SELFPAY ==
--- NOTE | 2024-05-21 21:03 | XR_ITS ---
PROCEDURE INFORMATION: Exam: XR Chest Exam date and time: 05/21/2024 9:22 PM Age: 54 years old Clinical indication: Pain; Chest pressure; Additional info: Dyspnea chest pain TECHNIQUE: Imaging protocol: Radiologic exam of the chest. Views: 2 views. COMPARISON: CR XR CHEST PORTABLE 05/25/2023 4:19 AM FINDINGS: Lungs: Lungs are hyperinflated. Clear parenchyma. Pleural spaces: No pleural effusion. No pneumothorax. Heart/Mediastinum: Cardiac silhouette is normal in size for technique. Bones/joints: Age appropriate. IMPRESSION: Hyperinflated but clear lungs. No other acute cardiopulmonary abnormality.
--- NOTE | 2024-05-21 21:04 | ED_ITS ---
<Statement entered by Johanna Mccarthy DO - 05/21/24 23:48> I was consulted by the FRANCO, and we discussed the complexity of the problems being addressed. I approved the treatment and management plan for this patient's care in the emergency department, thus performing a substantive portion of the medical decision making. Johanna Mccarthy DO Discharge Plan Disposition Patient Disposition: Home, Self-Care Condition: Good Prescriptions Prescriptions: New prednisone 50 mg tablet 50 mg PO DAILY 5 Days Qty: 5 0RF No Action Trelegy Ellipta 100-62.5-25 mcg blister with device 1 inh inhalation DAILY gabapentin 300 mg capsule 300 mg PO BID Qty: 60 2RF albuterol sulfate 90 mcg/actuation HFA aerosol inhaler 2 inh INHALATION Q4-6H 30 Days Qty: 5 3RF Airsupra 90-80 mcg/actuation HFA aerosol inhaler 2 inh inhalation 6XD PRN (Reason: shortness of breath) Qty: 10.7 0RF ipratropium-albuterol 0.5 mg-3 mg(2.5 mg base)/3 mL solution for nebulization 3 ml inhalation Q6H PRN (Reason: shortness of breath or wheezing) 30 Days Qty: 180 2RF Activity Restrictions/Add. Instructions Additional Instructions/Restrictions: Follow-up with your PCP within 48 hours for recheck. Return to ER for any worsening signs or symptoms as needed. Clinical Impressions Clinical Impression: Acute exacerbation of chronic obstructive pulmonary disease Instructions Patient Instructions: DI for Chronic Obstructive Pulmonary Disease Print Language Print Language: Japanese Discharge ED Provider: Johanna Mccarthy HPI <TREMAYNE Teague - Last Filed: 05/21/24 22:31> General Chief Complaint: Shortness of Breath/Dyspnea Stated Complaint: SOA Time Seen by Provider: 05/21/24 21:05 History of Present Illness HPI narrative: Patient presents for evaluation of shortness of breath. Patient has a 5-day history of increasing cough and shortness of breath. Shortness of breath is now persisted even at rest. He does have a history of COPD but is not oxygen dependent and is ongoing smoker of a pack a day. He denies subjective fever chills hemoptysis hematochezia melena nausea vomiting diarrhea. He reports chest pain with coughing but not at rest Related Data Home Medications ?Medication ?Instructions ?Recorded ?Confirmed fluticasone fur. 100 mcg-umeclid 1 inh inhalation DAILY 12/11/23 03/18/24 62.5 mcg-vilant 25 mcg inhalat.powder (Trelegy Ellipta) Previous Rx's ?Medication ?Instructions ?Recorded gabapentin 300 mg capsule 300 mg PO BID #60 caps 03/18/24 albuterol 90 mcg-budesonide 80 2 inh inhalation 6XD PRN shortness 05/16/24 mcg/actuation HFA aerosol inhaler of breath #10.7 grams (Airsupra) albuterol sulfate 90 mcg/actuation 2 inh inhalation Q4-6H shortness 05/16/24 aerosol inhaler of breath or wheezing 30 days #5 ea ipratropium 0.5 mg-albuterol 3 mg 3 ml inhalation Q6H PRN shortness 05/16/24 (2.5 mg base)/3 mL nebulization of breath or wheezing 30 days #180 soln mL prednisone 50 mg tablet 50 mg PO DAILY 5 days #5 tabs 05/21/24 Allergies Allergy/AdvReac Type Severity Reaction Status Date / Time No Known Allergies Allergy Verified 03/18/24 10:01 [facility] <TREMAYNE Teague - Last Filed: 05/21/24 22:31> [facility] Disclaimer: The information contained in this section may have been updated after the patient was seen, as this information can be updated by other users. Medical History COPD (chronic obstructive pulmonary disease) HLD (hyperlipidemia) Pneumonia Daytime somnolence Tobacco dependence syndrome Abnormal EKG Dyspnea Chest pain Social History Smoking Status: Current every day smoker tobacco type: cigarettes packs per day: 1 and smokeless tobacco alcohol intake: never current occupational status: employed Travel in the last 8 weeks: None housing: other <TREMAYNE Teague - Last Filed: 05/21/24 22:31> ROS Obtained: Yes Systems reviewed as appropriate & no additional complaints except as documented Physical Exam <TREMAYNE Teague - Last Filed: 05/21/24 22:31> General General appearance: alert and in no apparent distress Respiratory Respiratory exam: Present wheezes (Patient has end expiratory wheezing in all 4 burnett); Absent respiratory distress or accessory muscle use Cardiovascular Cardiovascular exam: Present regular rate Neurological Exam Neurological exam: Present alert and oriented X3 HEART Score <TREMAYNE Teague - Last Filed: 05/21/24 22:31> HEART Score HEART Score assessment performed?: No History (anamnesis): Slightly suspicious ECG: Normal Age: 45-65 years Risk factors: 3 or more risk factors Troponin: </= normal limit HEART Score: 3 <Johanna Mccarthy DO - Last Filed: 05/21/24 22:41> HEART Score HEART Score: 3 Critical Care <TREMAYNE Teague - Last Filed: 05/21/24 22:31> Critical Care Time Critical Care Time: No Medical Decision Making <TREMAYNE Teague - Last Filed: 05/21/24 22:31> Medical Records Medical records reviewed: Yes I reviewed the patient's medical records. [place] Inquiry Pt receiving controlled substance: No Vital Signs Vital Signs: 05/21/24 21:37 Temperature 98.2 F Temperature Source Oral Pulse Rate [Left] 86 Respiratory Rate 20 Blood Pressure [Right Arm] 143/94 H Blood Pressure Mean [Right Arm] 110 Blood Pressure Source [Right Arm] Automatic Cuff Blood Pressure Position [Right Arm] Sitting 02 Sat by Pulse Oximetry 94 L Oxygen Delivery Method Room Air Lab Data Lab results reviewed: Yes I reviewed the patient's lab results. Labs: Lab Results 05/21/24 21:04: VBG pH 7.39, VBG pCO2 44.2, VBG pO2 59.5 H, VBG HCO3 25.9, VBG Total CO2 27.3 H, VBG O2 Saturation 90.1 H, VBG Base Excess 0.9, VBG Lactic Acid 2.0 05/21/24 21:05: WBC 9.5, RBC 4.71, Hgb 15.0, Hct 47.8, MCV 101.5 H, MCH 31.8 H, MCHC 31.3 L, RDW 13.3, Plt Count 420, MPV 7.6, Neut % (Auto) 68.9, Lymph % (Auto) 20.4, Dickson % (Auto) 8.1, Eos % (Auto) 1.8, Baso % (Auto) 0.8, Neut # (Auto) 6.5, Lymph # (Auto) 1.9, Dickson # (Auto) 0.8, Eos # (Auto) 0.2, Baso # (Auto) 0.1, Sodium 138, Potassium 3.7, Chloride 104, Carbon Dioxide 30, Anion Gap 7.7, BUN 10, Creatinine 1.00, Estimated GFR 78, Est GFR ( Amer) 94, G lucose 120 H, Calcium 8.8, Magnesium 2.3, Total Bilirubin 0.4, AST 24, ALT 29, Alkaline Phosphatase 99, Troponin I < 0.01, Total Protein 7.0, Albumin 3.9, Globulin 3.1, Albumin/Globulin Ratio 1.3 05/21/24 21:05 05/21/24 21:05 Response Orders (Tests/Meds): ED MEDICATIONS Discontinued Medications Generic Name Dose Route Start Last Admin Trade Name Freq PRN Reason Stop Dose Admin Acetaminophen 1,000 mg 05/21/24 21:03 05/21/24 21:16 Acetaminophen 1,000mg/100ml Vial IV 05/21/24 21:04 1,000 mg ONCE ONE Administration Albuterol/Ipratropium 3 ml 05/21/24 21:03 05/21/24 21:16 Ipratropium/Albuterol 3 Ml [facility] 05/21/24 21:04 3 ml ONCE ONE Administration Albuterol/Ipratropium 6 ml 05/21/24 22:26 Ipratropium/Albuterol 3 Ml [facility] 05/21/24 22:27 ONCE ONE Dexamethasone Sodium Phosphate 10 mg 05/21/24 21:03 05/21/24 21:16 Dexamethasone 4mg/Ml 5ml Mdv IV 05/21/24 21:04 10 mg ONCE ONE Administration Ketorolac Tromethamine 15 mg 05/21/24 21:03 05/21/24 21:16 Ketorolac 30mg/Ml Vial IV 05/21/24 21:04 15 mg ONCE ONE Administration Ondansetron HCl 4 mg 05/21/24 21:03 05/21/24 21:16 Ondansetron 4mg/2ml Vial IV 05/21/24 21:04 4 mg ONCE ONE Administration ORDERS Category Date Time Status Chest XR 2 view (NOT portable) [XR chest 2V] Stat Exams 05/21/24 21:03 Completed CBC w/Auto Diff [Complete Blood Count Auto Diff] Stat Lab 05/21/24 21:05 Completed CMP [Comprehensive Metabolic Panel] Stat Lab 05/21/24 21:05 Completed Magnesium Stat Lab 05/21/24 21:05 Completed Rapid PCR Covid and Flu A/B Stat Lab 05/21/24 21:03 Ordered Trop I [Troponin I] Stat Lab 05/21/24 21:05 Completed Troponin I Q3H Lab 05/22/24 00:15 Ordered Troponin I Q3H Lab 05/22/24 03:15 Ordered VBG [Venous Blood Gas] Stat RT 05/21/24 21:04 Completed MDM Narrative Medical Decision Narrative: In summary patient is a 54-year-old male who presents to the emergency department for evaluation of dyspnea. Patient is hemodynamically stable upon arrival, afebrile. Physical exam is remarkable for bilateral end expiratory wheezes in all 4 burnett with slightly diminished breath sounds at the bases. Differential diagnosis includes COPD exacerbation versus pneumonia etc. Initial workup will be conducted with hematologic labs plain film chest x-ray twelve- lead EKG COVID and flu swabs. Initial interventions include crystalloid bolus Toradol Tylenol Decadron DuoNeb. Initial workup reviewed by me hematologic labs are nonactionable and my informal interpretation of his plain film chest x-ray shows no acute processes. COVID and flu are negative. Upon repeat evaluation reported moderate improvement in his symptoms however on reauscultation he is still has wheezing. Given this given another DuoNeb and reassessment afterwards shows his lung sounds are clear. Patient has no oxygen requirement. Thus he is appropriate for discharge with prescription for ongoing steroids and a 48-hour follow-up with his PCP. <Johanna Mccarthy, DO - Last Filed: 05/21/24 22:41> Vital Signs Vital Signs: 05/21/24 21:37 Temperature 98.2 F Temperature Source Oral Pulse Rate [Left] 86 Respiratory Rate 20 Blood Pressure [Right Arm] 143/94 H Blood Pressure Mean [Right Arm] 110 Blood Pressure Source [Right Arm] Automatic Cuff Blood Pressure Position [Right Arm] Sitting 02 Sat by Pulse Oximetry 94 L Oxygen Delivery Method Room Air Lab Data Labs: Lab Results 05/21/24 21:04: VBG pH 7.39, VBG pCO2 44.2, VBG pO2 59.5 H, VBG HCO3 25.9, VBG Total CO2 27.3 H, VBG O2 Saturation 90.1 H, VBG Base Excess 0.9, VBG Lactic Acid 2.0 05/21/24 21:05: WBC 9.5, RBC 4.71, Hgb 15.0, Hct 47.8, MCV 101.5 H, MCH 31.8 H, MCHC 31.3 L, RDW 13.3, Plt Count 420, MPV 7.6, Neut % (Auto) 68.9, Lymph % (Auto) 20.4, Dickson % (Auto) 8.1, Eos % (Auto) 1.8, Baso % (Auto) 0.8, Neut # (Auto) 6.5, Lymph # (Auto) 1.9, Dickson # (Auto) 0.8, Eos # (Auto) 0.2, Baso # (Auto) 0.1, Sodium 138, Potassium 3.7, Chloride 104, Carbon Dioxide 30, Anion Gap 7.7, BUN 10, Creatinine 1.00, Estimated GFR 78, Est GFR ( Amer) 94, G lucose 120 H, Calcium 8.8, Magnesium 2.3, Total Bilirubin 0.4, AST 24, ALT 29, Alkaline Phosphatase 99, Troponin I < 0.01, Total Protein 7.0, Albumin 3.9, Globulin 3.1, Albumin/Globulin Ratio 1.3 Response Orders (Tests/Meds): ED MEDICATIONS Discontinued Medications Generic Name Dose Route Start Last Admin Trade Name Freq PRN Reason Stop Dose Admin Acetaminophen 1,000 mg 05/21/24 21:03 05/21/24 21:16 Acetaminophen 1,000mg/100ml Vial IV 05/21/24 21:04 1,000 mg ONCE ONE Administration Albuterol/Ipratropium 3 ml 05/21/24 21:03 05/21/24 21:16 Ipratropium/Albuterol 3 Ml [facility] 05/21/24 21:04 3 ml ONCE ONE Administration Albuterol/Ipratropium 6 ml 05/21/24 22:26 Ipratropium/Albuterol 3 Ml [facility] 05/21/24 22:27 ONCE ONE Dexamethasone Sodium Phosphate 10 mg 05/21/24 21:03 05/21/24 21:16 Dexamethasone 4mg/Ml 5ml Mdv IV 05/21/24 21:04 10 mg ONCE ONE Administration Ketorolac Tromethamine 15 mg 05/21/24 21:03 05/21/24 21:16 Ketorolac 30mg/Ml Vial IV 05/21/24 21:04 15 mg ONCE ONE Administration Ondansetron HCl 4 mg 05/21/24 21:03 05/21/24 21:16 Ondansetron 4mg/2ml Vial IV 05/21/24 21:04 4 mg ONCE ONE Administration ORDERS Category Date Time Status Chest XR 2 view (NOT portable) [XR chest 2V] Stat Exams 05/21/24 21:03 Completed CBC w/Auto Diff [Complete Blood Count Auto Diff] Stat Lab 05/21/24 21:05 Completed CMP [Comprehensive Metabolic Panel] Stat Lab 05/21/24 21:05 Completed Magnesium Stat Lab 05/21/24 21:05 Completed Rapid PCR Covid and Flu A/B Stat Lab 05/21/24 21:03 Ordered Trop I [Troponin I] Stat Lab 05/21/24 21:05 Completed Troponin I Q3H Lab 05/22/24 00:15 Ordered Troponin I Q3H Lab 05/22/24 03:15 Ordered VBG [Venous Blood Gas] Stat RT 05/21/24 21:04 Completed ECG Data Tracing #1: Attestation: I reviewed this ECG and interpreted as documented below: ECG Narrative: Normal sinus rhythm with a ventricular rate of [address] changes concerning for ischemia. Normal axis and intervals ECG initial impression date: 05/21/24 ECG initial impression time: 22:40
[2024-05-21 21:13] LABS: Basophils # 0.1 K/mm3 (0-0.2); Basophils % 0.8 % (0.1-2.0); Eosinophils # 0.2 K/mm3 (0.0-0.4); Eosinophils % 1.8 % (0.1-12.0); Hematocrit 47.8 % (42.0-52.0); Lymphocytes # 1.9 K/mm3 (0.7-4.5); Lymphocytes % 20.4 % (10-50); Mean Corpuscular HGB Conc 31.3 g/dL (31.8-35.4); Mean Corpuscular Hemoglobin 31.8 pg (27.0-31.2); Mean Corpuscular Volume 101.5 fl (80-94); Mean Platelet Volume 7.6 fl (7.4-10.4); Monocytes # 0.8 K/mm3 (0.1-1.0); Monocytes % 8.1 % (1.7-9.3); Neutrophils # 6.5 K/mm3 (1.8-7.8); Neutrophils % 68.9 % (37.0-80.0); Platelet Count 420 K/mm3 (142-424); Red Blood Count 4.71 M/mm3 (4.60-6.20); Red Cell Distribution Width 13.3 % (11.5-17.5); White Blood Count 9.5 K/mm3 (4.8-10.8)
[2024-05-21] MEDS: ONDANSETRON 4MG/2ML VIAL 4 MG IV (21:16)
[2024-05-21] MEDS: IPRATROPIUM/ALBUTEROL 3 ML NEB IH (21:16)
[2024-05-21] MEDS: KETOROLAC 30MG/ML VIAL 15 MG IV (21:16)
[2024-05-21] MEDS: ACETAMINOPHEN 1,000MG/100ML VIAL 1000 MG IV (21:16)
[2024-05-21] MEDS: DEXAMETHASONE 4MG/ML 5ML MDV 10 MG IV (21:16)
[2024-05-21 21:22] LABS: Albumin Level 3.9 g/dl (3.5-5.0); Chloride 104 mmol/L (98-107); Potassium 3.7 mmoL/L (3.5-5.1); Sodium 138 mmol/L (136-145)
[2024-05-21 21:25] LABS: VBG Base Excess 0.9 mmol/L (-2.4-2.3); VBG HCO3 25.9 mmol/L (23-30); VBG Oxygen Saturation 90.1 % (50-70); VBG PCO2 44.2 mmol/L (35-51); VBG PH 7.39 mmol/L (7.31-7.41); VBG PO2 59.5 mmol/L (28-40); VBG Total CO2 27.3 mmol/L (23-27)
[2024-05-21 21:25] LABS: Alanine Aminotransferase 29 U/L (12-78); Albumin/Globulin Ratio 1.3 (1.1-1.8); Alkaline Phosphatase 99 U/L (38-126); Anion Gap 7.7 mEq/L (5-15); Aspartate Amino Transferase 24 U/L (17-59); Bilirubin,Total 0.4 mg/dl (0.2-1.3); Blood Urea Nitrogen 10 mg/dl (9-20); Carbon Dioxide 30 mmol/L (22.0-30.0); Estimated Glomerular Filt Rate 78 ml/min (>60); GFR (African American) 94 ML/MIN (>60); Globulin 3.1 g/dL (1.3-3.2)
[2024-05-21 21:26] LABS: Calcium 8.8 mg/dl (8.4-10.2); Glucose 120 mg/dl (74-100); Magnesium 2.3 mg/dl (1.6-2.3)
[2024-05-21 21:37] VITALS: BP 143/94; PULSE 86; RESP 20; TEMP 36.8; O2SAT 94; BMI 29.3
[2024-05-21 21:37] LABS: Troponin I < 0.01 ng/ml (0.00-0.034)
--- NOTE | 2024-05-21 22:39 | ECG_ITS ---
APPROVED REPORT Exam: Resting ECG HR:80 bpm ECG Measurements Heart Rate 80 AXES NC 158 P 75 QRSd 97 QRS 84 QT 372 T 68 QTc 408 Conclusion SINUS RHYTHM NORMAL ECG Electronically signed by : SAIDA CHANDRA, 05/21/2024 23:56:16
[2024-05-21] MEDS: IPRATROPIUM/ALBUTEROL 3 ML NEB 6 ML IH (22:51)
[2024-05-21 22:54] VITALS: BP 121/88; PULSE 80; RESP 16; TEMP 36.6; O2SAT 94
== END 2024-05-21 22:55 | disposition home or self-care (01) ==
PROVIDERS: Physician Assistant; Emergency Provider Emergency Medicine; PCP Nurse Practitioner Family
DX: J44.1 Chronic obstructive pulmonary disease with (acute) exacerbation (principal); R06.02 Shortness of breath; R05.9 Cough, unspecified; E78.5 Hyperlipidemia, unspecified; F17.210 Nicotine dependence, cigarettes, uncomplicated
CPT/HCPCS: 71046; 80053; 82803; 83735; 84484; 85025; 93005; 96374; 96375; 99285; J0131; J1100; J1885; J2405; J7620

== ENCOUNTER 2024-06-03 06:18 | Outpatient (CLI) | payer OTHER, SELFPAY ==
--- NOTE | 2024-06-03 06:26 | CT_ITS ---
FINAL REPORT TECHNIQUE: Axial images were obtained from the lung apex to the mid abdomen by computed tomography. This study was performed with techniques to keep radiation doses as low as reasonably achievable (ALARA). Individualized dose reduction techniques using automated exposure control or adjustment of mA and/or kV according to the patient's size were employed. CLINICAL HISTORY: lung cancer screening current smoker 1ppd x 30 years COMPARISON: 04/13/2022 FINDINGS: CHEST CT LOW DOSE CTDI vol (mGy): 2.90 DLP (mGy-cm): 112.81 There is no axillary adenopathy. There is no hilar or mediastinal adenopathy. The heart is normal in size. There is no pericardial or pleural effusion. There is irregular density in the posterior lateral right upper lobe measuring 1.9 x 1.3 cm well seen on image 46 of series 4. This is new since the prior. Moderate centrilobular emphysema is identified. There is scarring at the right apex. Limited images of the upper abdomen are unremarkable. IMPRESSION: Lobular density in the right upper lobe, appears airspace in character. Lung RADS category 0. Recommend 1 month follow-up low-dose chest CT. Reviewed, Interpreted and Dictated by Noam Degroot MD Transcribed by Lorena Fuentes Authenticated and . [facility]
== END 2024-06-03 23:59 | disposition home or self-care (01) ==
LOC: RAD 06:20
PROVIDERS: PCP Nurse Practitioner Family; Visit Provider Nurse Practitioner Family
DX: J44.9 Chronic obstructive pulmonary disease, unspecified (principal); F17.210 Nicotine dependence, cigarettes, uncomplicated
CPT/HCPCS: 71271

== ENCOUNTER 2025-06-14 16:59 | Emergency (ER) | payer OTHER, SELFPAY ==
[2025-06-14 17:04] VITALS: PULSE 86; RESP 17; O2SAT 97
[2025-06-14 17:06] VITALS: BP 184/97; PULSE 80; RESP 19; TEMP 36.8; O2SAT 95; BMI 28.3
--- OUTSIDE RECORDS SUMMARY | 2025-06-14 17:07 | XMS_ITS | Clinical Summary ---
Author Organization [facility] Address [address] [place] [id number] Phone Care Team Providers Care Digital Program Manager Name Role Phone Unavailable Primary Care Provider Unavailabl e Social History Tobacco Use Types Packs/Day Years Used Date Smoking Tobacco: Never Assessed Sex and Gender Information Value Date Recorded Sex Assigned at Not on file Legal Sex Male 11:43 PM EDT Gender Identity Not on file Sexual Orientation Not on file Plan of Treatment Health Maintenance Due Date Last Done Comments Annual Wellness Exam 1972 DTaP/TDaP/Td (1 - Tdap) 1988 Hepatitis B Vaccine (1 of 3 - 19+ 3-dose series) 1988 Cologuard 2014 Colon Cancer Screening 2014 Colonoscopy 2014 FIT 2014 Sigmoidoscopy 2014 Virtual Colonography 2014 Pneumococcal Vaccine 50+ (1 of 1 - PCV) 2019 Zoster (1 of 2) 2019 COVID-19 Vaccine (1 - 2023-2 5 season) 2025 Influenza Vaccine (#1) 2025 Meningococcal B Vaccine Aged Out No l onger eligible based on patient's age to complete this topic Insurance CORRECT CARE
--- OUTSIDE RECORDS SUMMARY | 2025-06-14 17:07 | XMS_ITS | Data Portability ---
Author Organization [facility] - [facility] ADMIN Address [address] [place] [id number] Assessment No assessment recorded. Plan of Treatment Reminders Order Date Submit Date Provider Last Modified By Organization Details Last Modified Time Details Appointments None recorded . Lab None recorded . Referral pulmonar y rehab referral 2022 023 [facility], [address], [place], [address], 3 13:20:34 Procedures None recorded . Surgeries None recorded . Imaging LDCT, chest, for lung cancer screenin g - 1- Did patient particip ate in a shared decision -making session with the provider ? YES 2- Is patient age between 50-77 years old? YES 3- Did patient smoke at least 20 pack year? YES 4- Is patient current smoker or quit smoking within the last 15 years? YES 5- Is the patient asymptom atic (no signs or symptoms of lung cancer)? YES 2022 023 [facility] (Centralized Scheduling), [address], [place], [address], 3 11:30:43 LDCT, chest, for lung cancer screenin g - 1- Did patient particip ate in a shared decision -making session with the provider ? YES 2- Is patient age between 50-77 years old? YES 3- Did patient smoke at least 20 pack year? YES 4- Is patient current smoker or quit smoking within the last 15 years? YES 5- Is the patient asymptom atic (no signs or symptoms of lung cancer)? YES 2022 024 [email or web address] [facility] (Centralized Scheduling), [address], [place], [address], 4 11:46:18 PFT, plethysm ography 2022 023 [email or web address] [facility] (Centralized Scheduling), [address], [place], [address], 3 08:24:50 LDCT, chest, for lung cancer screenin g - 1- Did patient particip ate in a shared decision -making session with the provider ? YES 2- Is patient age between 50-77 years old? YES 3- Did patient smoke at least 20 pack year? YES 4- Is patient current smoker or quit smoking within the last 15 years? YES 5- Is the patient asymptom atic (no signs or symptoms of lung cancer)? YES 2022 023 [facility] (Centralized Scheduling), [address], [place], [address], 3 12:00:39 Medication Orders Nicoderm CQ 14 mg/24 hr daily transder mal patch 2022 023 [facility], [address] [place] [address], [place], [place], [id number], 3 11:31:58 Breztri Aerosphe re 160 mcg-9mcg -4.8mcg/ actuatio n HFA aerosol inhaler 2022 023 [email or web address] [facility], [address] [facility] [address] [place], [place], [id number], 3 09:08:33 Nicoderm CQ 21 mg/24 hr daily transder mal patch 2022 023 [facility], [facility], [facility] [address], [place], [place], [id number], 11:53:25 Patient TargetsNo targets recorded. Patient Instructions Encounter Date Encounter Id Patient Instructions Last Modified By Organization Details Last Modified Time 01/01/2023 [id number] smoking cessatio n counseling, greater than 3 minutes up to 10 minutes* [email or web address] Not available 01/01/2023 11:51:19 04/10/2023 [id number] smoking cessatio n counseling, greater than 3 minutes up to 10 minutes* [email or web address] Not available 04/10/2023 15:53:04 08/15/2023 [id number] smoking cessatio n counseling, greater than 3 minutes up to 10 minutes* [email or web address] Not available 08/15/2023 11:30:42 Reason for Referral Pulmonary Rehab Referral for Pulmonary emphysema Referring Physician: Luz Maria Cooper, Pulmonary Disease, Encounter Date: 01/01/2023 Results Created Date Observation Date Name Description Value Unit Range Abnormal Flag Note LastModifiedBy Organization Detail LastModifiedTime 01/02/2001/01/2023 XR, chest , 2 view [facility] [address] [place] [address] Phone: Fax: Name: ELY BENSON Exam Date: : [birth year] Age 52 Gender : M Access ion: [id number] Physic kassy: LUZ MARIA COOPER Facili ty: [facility] Facili ty HSV: Outpat ient Exam: CHEST 2 VIEWS CHEST, 2 VIEWS HISTOR Y: Acute cough COMPAR BIJAN: None FINDIN GS: The heart and medias tinum are unrema rkable . The lungs are clear withou t eviden ce of acute infilt rate or effusi on. The bony struct ures are intact . IMPRES SHANNAN: No acute proces s. Images review ed, interp reted and dictat ed by Dr. Arita. Transc ribed by Marcio Gore PA-C Dictat ed By: DAVID ARITA Transc ribed By: David Arita Transc ribed On: 023 11:09 AM Electr onical ly signed by: DAVID ARITA Thank you for referr ELY Gu to [facility]. Legall y authen ticate d by POPE DAVID Abbott 01-01 11:09: 27 CC'ed Logic: Orderi ng Provid er: KENNETH PEPE Attend ing Provid er: KENNETH PEPE Admitt ing Provid er: KENNETH PEPE fkoura [facility] - Physical Therapy [address] [facility], [place], [address], 01/01/2023 11:31:31 02/27/20 23 02/26/2023 LDCT, chest , for lung cance r sharda owen [facility] [address] [place] [address] Phone: Fax: Name: ELY BENSON Exam Date: : [birth year] Age 52 Gender : M Access ion: [id number] Physic kassy: LUZ MARIA COOPER Facili ty: [facility] Facili ty HSV: Outpat ient Exam: CT LOW DOSE LUNG SCREEN ING CT CHEST LOW DOSE SCREEN ING HISTOR Y: Curren t smoker . 30 pack year histor y. COMPAR BIAJN: None. TECHNI QUE: Axial images were obtain ed from the lung apices throug h the midabd omen by comput ed tomogr aphy withou t the admini strati on of contra st. This was perfor med as a low dose chest CT for lung cancer screen ing. This study was perfor med with techni ques to keep radiat ion doses as low as reason ably achiev able, (ALARA ). Indivi dualiz ed dose reduct ion techni ques using automa marie exposu re contro l or adjust ment of mA and/or kV accord ing to the patien t's size were employ ed. CTDI: 2.94 mGy DLP: 118.9 mGy*cm FINDIN GS: There is a small hiatal hernia . There is no axilla ry adenop athy. There is no medias tinal or hilar adenop athy. Heart size is normal . There is no perica rdial or pleura l effusi on. The lungs demons trate mild to modera te emphys gt. There is apical scarri ng on the right. There is a 3 mm nodule in the right middle lobe best seen on image 93. There is basila r atelec tasis. Limite d images of the upper abdome n reveal change s from prior cholec ystect franko. There is athero sclero sis withou t aneury sm. There is no acute osseou s abnorm ality. IMPRES SHANNAN: 3 mm right middle lobe nodule . LUNG RADS Catego ry 2 . Recomm end repeat low dose chest CT in one year. The films were review ed, interp reted, and dictat ed by Dr. David Arita Transc ribed by Keyona Rodriguez se, PA-C Dictat ed By: DAVID ARITA Transc ribed By: David Arita Transc ribed On: 023 11:47 AM Electr onical ly signed by: DAVID ARITA 023 Thank you for referr ELY Gu to [facility] Hospit [facility]. Legall y authen ticate d by POPE DAVID Abbott 0 02-26 11:47: 47 CC'ed Logic: Orderi ng Provid er: KENNETH PEPE Attend ing Provid er: KENNETH PEPE Referr ing Provid er: KENNETH PEPE Admitt ing Provid er: KENNETH PEPE [facility] - [facility] Therapy [address] [place] [address], [address], 02/26/2023 13:33:22 Result Notes Documentation Provider Name and Address Organization Details Recorded Time Xr, Chest, 2 View : [facility] [address] [place] [address] Name: MARCELINO ELY Exam Date: 01/01/2023 : 1970 Age 52 Gender: M Physician: LUZ MARIA COOPER Facility: [facility] Facility HSV: Outpatient Exam: CHEST 2 VIEWS CHEST, 2 VIEWS HISTORY: Acute cough COMPARISON: None FINDINGS: The heart and mediastinum are unremarkable. The lungs are clear without evidence of acute infiltrate or effusion. The bony structures are intact. IMPRESSION: No acute process. Images reviewed, interpreted and dictated by Dr. Arita. Transcribed by Marcio Gore PA-C Dictated By: DAVID ARITA Transcribed By: David Arita Transcribed On: 01/01/2023 11:09 AM Electronically signed by: DAVID ARITA 01/01/2023 Thank you for referring ELY BENSON to [facility]. Legally authenticated by POPE DAVID Abbott 2023-01-01 11:09:27 CC'ed Logic: Ordering Provider: KENNETH PEPE Attending Provider: KENNETH PEPE Admitting Provider: KENNETH Cooper MD [address] [place] [address], [phone] 01/01/2023 11:31:31 Ldct, Chest, For Lung Cancer Screening : [address] [address] Name: ELY BENSON Exam Date: 02/26/2023 : 1970 Age 52 Gender: M Physician: LUZ MARIA COOPER Facility: [facility] Facility HSV: Outpatient Exam: CT LOW DOSE LUNG SCREENING CT CHEST LOW DOSE SCREENING HISTORY: Current smoker . 30 pack year history. COMPARISON: None. TECHNIQUE: Axial images were obtained from the lung apices through the midabdomen by computed tomography without the administration of contrast. This was performed as a low dose chest CT for lung cancer screening. This study was performed with techniques to keep radiation doses as low as reasonably achievable, (ALARA). Individualized dose reduction techniques using automated exposure control or adjustment of mA and/or kV according to the patient's size were employed. CTDI: 2.94 mGy DLP: 118.9 mGy*cm FINDINGS: There is a small hiatal hernia. There is no axillary adenopathy. There is no mediastinal or hilar adenopathy. Heart size is normal. There is no pericardial or pleural effusion. The lungs demonstrate mild to moderate emphysema. There is apical scarring on the right. There is a 3 mm nodule in the right middle lobe best seen on image 93. There is basilar atelectasis. Limited images of the upper abdomen reveal changes from prior cholecystectomy. There is atherosclerosis without aneurysm. There is no acute osseous abnormality. IMPRESSION: 3 mm right middle lobe nodule. LUNG RADS Category 2 . Recommend repeat low dose chest CT in one year. The films were reviewed, interpreted, and dictated by Dr. David Arita Transcribed by Keyona Cho PA-C Dictated By: DAVID ARITA Transcribed By: David Arita Transcribed On: 02/26/2023 11:47 AM Electronically signed by: DAVID ARITA 02/26/2023 Thank you for referring ELY BENSON to [facility]. Legally authenticated by POPE DAVID Abbott 2023-02-26 11:47:47 CC'ed Logic: Ordering Provider: KENNETH PEPE Attending Provider: KENNETH PEPE Referring Provider: KENNETH PEPE Admitting Provider: KENNETH Cooper MD [address], [place], [address], [place] [facility] [place] & [place] 02/26/2023 13:33:22 Problems Name Problem SNOMED Code Status Onset Date Resolution Date Notes Provider Name and Address Organization Details Recorded Time Pulmonary emphysema 54970315 Active 2022 Luz Maria Cooper MD [address], [place], [address] , [place] [facility] - [place] 3 11:46:45 Dyspnea on exertion 89509192 Active 2022 Luz Maria Cooper MD [address], [place], [address] , [place] [facility] [place] 3 11:47:09 Tobacco dependence caused by cigarettes 5841204948102 9107 Active 2022 Luz Maria Cooper MD [address], [place], [address] , [place] [facility] [place] & [place] 3 11:47:17 Tobacco dependence in remission 657355121 Active 2022 Luz Maria Cooper MD [address], [place], [address] , [place] [facility] [place] & [place] 3 13:42:24 Problem Notes None recorded. Medical Equipment None Reported. Allergies No known drug allergies Medications Name Sig Start Date Stop Date Status Note LastModified by Organization Details LastModified Time cyclobenzap rine 10 mg tablet active Not Available Not Available Not Available prednisone 10 mg tablet 08/16 completed Not Available Not Available Not Available nicotine 14 mg/24 hr daily transdermal patch Apply 1 patch every day by transderm al route for 30 days. active Not Available Not Available No t Available ipratropium 0.5 mg-albutero l 3 mg (2.5 mg base)/3 mL nebulizatio n soln active Not Available Not Available Not Available azithromyci n 250 mg tablet active Not Available Not Available Not Available hydrocodone 5 mg-acetamin ophen 325 mg tablet active Not Available Not Available No t Available nicotine 21 mg/24 hr daily transdermal patch Apply 1 patch every day by transderm al route for 30 days. active Not Available Not Available No t Available Advair Diskus 500 mcg-50 mcg/dose powder for inhalation 01/01 completed Not Available Not Available Not Available gabapentin 300 mg capsule active Not Available Not Available Not Available diclofenac sodium 50 mg tablet,isidra yed release active Not Available Not Available Not Available methylpredn isolone 4 mg tablets in a dose pack 04/10 completed Not Available Not Available Not Available Ventolin HFA 90 mcg/actuati on aerosol inhaler INHALE 2 PUFFS BY MOUTH EVERY 4 HOURS NEEDED 2023 active Not Available Not Available Not Avai lable Spiriva with HandiHaler 18 mcg and inhalation capsules 08/16 completed Not Available Not Available Not Available Symbicort 160 mcg-4.5 mcg/actuati on HFA aerosol inhaler 08/16 completed Not Available Not Available Not Available Trelegy Ellipta 100 mcg-62.5 mcg-25 mcg powder for inhalation Inhale by inhalatio n route for 30 days. active Not Available Not Available No t Available Breztri Aerosphere 160 mcg-9mcg-4. 8mcg/actuat ion HFA aerosol inhaler Inhale by inhalatio n route for 30 days. 08/16 completed Not Available Not Available Not Available Vitals Date Recorded Body height Body mass index (BMI) Body weight Body temperature Oxygen saturation Oxygen saturation in Arterial blood by Pulse oximetry Heart rate Systolic And Diastolic Provider Name and Address Organization Details Last Updated DateTime 3 190.5 cm 26.3 kg/m2 87276.1 9 g 98.9 [degF] 97 % 97 % 65 /min 151/85 mm[Hg] Rj SIMS [facility] & [place] 3 11:22:51 Date Recorded Body height Body mass index (BMI) Body weight Body temperature Oxygen saturation Oxygen saturation in Arterial blood by Pulse oximetry Heart rate Systolic And Diastolic Provider Name and Address Organization Details Last Updated DateTime 3 190.5 cm 25.4 kg/m2 66473.0 5 g 99.3 [degF] 96 % 96 % 102 /min 136/91 mm[Hg] Anusha Skinner FELICIA [facility] & [place] 3 15:27:06 Date Recorded Body height Body weight Body temperature Oxygen saturation Oxygen saturation in Arterial blood by Pulse oximetry Heart rate Systolic And Diastolic Provider Name and Address Organization Details Last Updated DateTime 3 190.5 cm 81770.0 1 g 98.9 [degF] 97 % 97 % 79 /min 135/81 mm[Hg] [facility] & [place] 3 11:02:26 Social History Question Answer Notes LastModified by Alignable Details LastModified Time Tobacco Smoking Status Current Every Day Smoker BETHANY Carmichael NT [facility] & [place] 01/01/2023 11:20:23 What Is Your Level Of Caffeine Consumption? Moderate [email or web address] Information not available 01/01/2023 Which Illicit Or Recreational Drugs Have You Used? Marijuana [email or web address] Information not available 01/01/2023 At What Age Did You Start Smoking Tobacco? 14 Information not available 01/01/2023 How Much Tobacco Do You Smoke? 1 PPD [email or web address] Information not available 01/01/2023 Sex: Unknown Functional Status Question Answer Note LastModified by Organizat ion Details LastModified Time Do you use any illicit or recreational drugs? Yes [email or web address] Information not available 01/01/2023 What is your level of alcohol consumption? Occasional [email or web address] Information not available 01/01/2023 Mental Status None recorded. Family History Relationship Description Onset Age of this Age Resolved Age Notes LastModified by Organization Details LastModified Time Father No current problems or disability [email or web address] Not available 0 01/01/2023 11:19:32 Mother No current problems or disability [email or web address] Not available 0 01/01/2023 11:19:32 Medical History No medical history recorded. Past Encounters Encounter ID Performer Location Encounter Start Date Encounter Closed Date Diagnosis/Indication Diagnosis SNOMED-CT Code Diagnosis ICD10 Code Diagnosis IMO Codes Diagnosis Note [id number] Luz Maria Cooper MD [facility] [address] [facility] [place] [address] 01/01/2023 11:06:38 01/01/2023 12:01:33 Pulmonary emphysema 59221173 J43.9 Images and report of chest x-ray done today were reviewed and discussed with the patient showing no acute changes.Sp irometry done in the office today showed evidence of obstructio n with decrease in FEV1 down to 43% predicted and that was also reviewed and discussed with the patient so will arrange for him to have full PFTs with DLCO. Will check alpha-1 antitrypsi n genotype by buccal mucosal swab in the office today.Will refer patient to the pulmonary rehab program for further assessment and management .Will start patient on a controller inhaler using Breztri, and patient instructed to discontinu e the use of Symbicort. Patient use Meseret on a p.r.n. basis.Laurie ent instructed to call if there is any new symptoms. Dyspnea on exertion 6084 5006 R06.09 Patient recommende d to exercise as tolerated and to use his Meseret on a p.r.n. basis. Tobacco de pendence caused by cigarettes [id number] 2746520 F17.210 Patient counseled extensivel y to quit smoking and will continue follow this up and arrange for him to have nicotine supplement to help him in this process. Screening for malignant neoplasm of respiratory tract 985280496 Z12.2 The patient has participat ed in a shared decision making session during which potential risk and benefits of LDCT lung cancer screening were discussed. The patient was informed of the importance of adherence to annual screening, impact of comorbidit ies, the ability/wi llingness to undergo diagnosis and treatment. The patient was informed of the importance of smoking cessation and/or maintainin g smoking abstinence , including the offer of Medicare-c over tobacco cessation counseling services, if applicable . The patient is asymptomat ic (no symptoms such as fever, chest pain, new shortness of breath, new or changing cough, coughing up blood, or unexplaine d significan t weight loss). [id number] Luz Maria Cooper MD [facility] [address] [facility] [place] [address] 04/10/2023 15:19:55 04/10/2023 15:43:45 Pulmonary emphysema 24889314 J43.9 Results of full PFTs with DLCO were reviewed and discussed with the patient, he had evidence of severe emphysema with decrease in FEV1 down to 48% and evidence of air trapping. Alpha-1 antitrypsi n testing was within normal limit/mm and that was also discussed with the patient. I had lengthy discussion with patient regarding the possibilit y of pulmonic valve placement but he has to quit smoking and I explained that to him and he voiced understand ing.Patien t instructed to use his Trelegy daily.Laurie ent use Meseret on a p.r.n. basis.Laurie ent instructed to call if there is any new symptoms. Dyspnea on exertion 6084 5006 R06.09 Patient recommende d to exercise as tolerated and to use his Meseret on a p.r.n. basis. Tobacco de pendence caused by cigarettes 4812690816 0081820 F17.210 Patient counseled extensivel y to quit smoking and will continue follow this up and to continue with the use of nicotine supplement . Images and report of low-dose CT of the chest done recently were reviewed and discussed with the patient, there is no evidence of malignancy and will continue with annual testing. Screening for malignant neoplasm of respiratory tract 071451973 Z12.2 The patient has participat ed in a shared decision making session during which potential risk and benefits of LDCT lung cancer screening were discussed. The patient was informed of the importance of adherence to annual screening, impact of comorbidit ies, the ability/wi llingness to undergo diagnosis and treatment. The patient was informed of the importance of smoking cessation and/or maintainin g smoking abstinence , including the offer of Medicare-c over tobacco cessation counseling services, if applicable . The patient is asymptomat ic (no symptoms such as fever, chest pain, new shortness of breath, new or changing cough, coughing up blood, or unexplaine d significan t weight loss). At [facility] risk of polypharmacy 125343321 Z91.89 I had very lengthy discussion with patient regarding his inhalers use and it should be restricted to Trelegy once a day and Meseret only to use on a p.r.n. basis. And patient voiced understand ing and repeated the instructio ns correctly. [id number] Luz Maria Cooper MD [facility] [address] [facility] [place] [address] 08/15/2023 10:58:58 08/15/2023 11:22:39 Pulmonary emphysema 86133371 J43.9 Patient instructed to use his Trelegy daily.Laurie ent use Meseret on a p.r.n. basis.Laurie ent instructed to call if there is any new symptoms. Dyspnea on exertion 6084 5006 R06.09 Patient recommende d to exercise as tolerated and to use his Meseret on a p.r.n. basis. Tobacco de pendence caused by cigarettes [id number] 9684498 F17.210 Patient counseled extensivel y to quit smoking and will continue follow this up. Will arrange for the patient to have nicotine supplement to help him in this process.Toni yanes to have his annual low-dose CT of the chest for lung cancer screening as scheduled in February 2024. Screening for malignant neoplasm of respiratory tract 812035882 Z12.2 The patient has participat ed in a shared decision making session during which potential risk and benefits of LDCT lung cancer screening were discussed. The patient was informed of the importance of adherence to annual screening, impact of comorbidit ies, the ability/wi llingness to undergo diagnosis and treatment. The patient was informed of the importance of smoking cessation and/or maintainin g smoking abstinence , including the offer of Medicare-c over tobacco cessation counseling services, if applicable . The patient is asymptomat ic (no symptoms such as fever, chest pain, new shortness of breath, new or changing cough, coughing up blood, or unexplaine d significan t weight loss). Immunization advised 310 804995 Z71.9 Patient recommende d to receive flu and COVID-19 vaccinatio n for this season but he declined to do so. Health Concerns Section Related Observation LastModified by Organization Detai ls LastModified Time None Recorded Concern Status LastModified by Organization Details LastModified Time None Recorded Advance Directives Directive None Recorded Payers Insurance Date Sequence Insurance Name Policy Number Policy Adan Covered Member ID Adan Member ID Guarantor Name 08/12/2023 1 [employer] [facility] (MEDICAID HMO) Ely Benson [id number] Ely Benson 04/10/2023 1 [employer] [facility] (MEDICAID HMO) Ely Benson [id number] Ely Benson 04/10/2023 1 [employer] [facility] (MEDICAID HMO) Ely Marcelino [id number] Ely Marcelino Notes Date Note Type Note Provider Name and Address Organization Details Recorded Time 01/01/2023 text/html Patient presents to the office today for initial evaluation. Patient states that progressively he is having shortness of breath at rest and dyspnea on exertion grade 3 on M [facility] dyspnea scale. He denies fever, chills or diaphoresis. No chest pain, angina or palpitation. No PND or orthopnea. Patient states that he had wheezing. No hemoptysis. Patient denies significant change in his weight or appetite.Patient using Symbicort 160 p.r.n. about 4 times per day in addition to albuterol. Patient had history of smoking of up to 2 packs per day since his teenage years. Luz Maria Cooper MD [address] [facility], [place], [address], [facility] - [place] & [place] 01/18/2023 13:43:33 04/10/2023 text/html Patient presents to the office today for follow-up visit. Patient states that he is feeling better overall. Was confused about his Symbicort and was using it on a p.r.n. basis but currently he is using his Trelegy regularly and Meseret about twice a day. Patient had to discontinue the participation the pulmonary rehab program due to arthralgia and back pain. Patient still smoking few cigarettes per day. He denies shortness breath at rest but had dyspnea exertion grade 2 on M [facility] dyspnea scale. He denies fever, chills or diaphoresis. No chest pain, angina or palpitation. No PND or orthopnea. Patient denies wheezing or hemoptysis. Patient denies significant change in his weight or appetite. Luz Maria Cooper MD [address], [place], [address], [facility] 04/10/2023 15:54:49 08/15/2023 text/html Patient presents to the office today for follow-up visit. Patient states that he is around his baseline of shortness of breath at rest or and with exertion. His using his Trelegy regularly and Meseret every 4 hours. He denies fever, chills or diaphoresis. No chest pain, angina or palpitation. No PND or orthopnea. Patient denies wheezing or hemoptysis. Patient denies significant change in his weight or appetite. Patient currently smoking about half pack per day. Luz Maria Cooper MD [address], [place], [address], [facility] [place] 08/15/2023 11:31:07
--- OUTSIDE RECORDS SUMMARY | 2025-06-14 17:07 | XMS_ITS | Clinical Summary ---
Author Organization [facility] Address [address] [place] [address] Care Team Providers Care Loss Prevention Agent Name Role Phone Braydon Gordon MD Primary Care Provider Allergies No known active allergies Medications ipratropium-albute rol (DUO-NEB) 0.5-2.5 mg/3 ml nebulizer 06/29/2022 Active Advair Diskus 500-50 MCG/ACT DISKUS 06/12/2022 Active Active Problems No known active problems Family History Medical History Relation Name Comments Cancer Father Relation Name Status Comments Father Social History Tobacco Use Types Packs/Day Years Used Date Smoking Tobacco: Every Day Cigarettes 1 20 Tobacco Cessation:Ready to Q uit: Not Asked; Counseling Given: Not Answered Alcohol Use Standard Drinks/Week Comments Yes 12 (1 standard drink = 0.6 oz pu re alcohol) Abuse Screen Answer Date Recorded Unsafe at Home or Work/School Not on file Feels Threatened by Someone? Not on file Does Anyone Keep You from Co ntacting Others or Doint Things Outside the Home? Not on file 06/29/2023 Physical Sign of Abuse Present Not on file 1 Housing Stability Answer Date Recorded Current Living Arrangements Not on file 06/17 Potentially Unsafe Housing Conditions Not on david e 06/29/2023 Family and Community Support Answer Hood e Recorded Help with Day-to-Day Activities Not on file 06/29/2023 Lonely or Isolated Not on file 06/29/2023 Employment Answer Date Recorded Do you want help finding or keeping work or a nakita b? Not on file 06/29/2023 Disabilities Answer Date Recorded Concentrating, Remembering, or Making Decisions Difficulty Not on file 06/29/2023 Doing Errands Independently Difficulty Not on fi le 06/29/2023 Education Answer Date Recorded Help with school or training? Not on file Preferred Language Not on file 06/29/2023 Sex and Gender Information Value Date Recorded Sex Assigned at Not on file Legal Sex Male 11:30 AM EDT Gender Identity Not on file Sexual Orientation Not on file Last Filed Vital Signs Vital Sign Reading Time Taken Comments Blood Pressure 132/88 07/24/2022 9:14 AM EST Pulse - - Temperature 36.2 C (97.1 F) 07/24/2022 9:14 AM EST Respiratory Rate - - Oxygen Saturation - - Inhaled Oxygen Concentration - - Weight 98 kg (216 lb) 07/24/2022 9:14 AM EST Height 190.5 cm (6' 3 ) 07/24/2022 9:14 AM EST Body Mass Index 27 07/24/2022 9:14 AM EST Plan of Treatment Health Maintenance Due Date Last Done Comments Pneumococcal Vaccine 50+ (1 of 2 - PCV) 1988 TDAP/TD VACCINES (1 - Tdap) 1988 COLOGUARD 2014 COLON CANCER SCREENING 5 YEAR SIGMOIDOSCOPY 2014 COLONOSCOPY [address]CER SCREENING [address] COLONOGRAPHY 2014 FECAL OCCULT BLOOD TEST 2014 FIT Testing (1 year) 2014 ZOSTER VACCINE (1 of 2) 2019 ANNUAL PHYSICAL 07/24/2022 HEPATITIS C SCREENING 07/24/2022 INFLUENZA VACCINE 04/17/2025 Insurance [facility] [id number] [facility] Care Teams Loss Prevention Agent Relationship Specialty Start Date End Date Braydon Gordon MD [address] [place] [address] PCP - General Family Medicine 05/03/22
--- OUTSIDE RECORDS SUMMARY | 2025-06-14 17:07 | XMS_ITS | Patient Health Record ---
Author Organization [facility] Address [address] [place] [address] [address] [place] [address] Care Team Providers Care Internet Site Designer Name Role Phone Nicole Benoit APRN Unavailable Unavailable Allergies No Known Allergies Reason For Referral No Information Medications Medication SIG (Take, Route, Frequency, Duration) Notes Start Date End Date Status gabapentin 300 mg 1 cap(s) orally once a day at bedtime; Duration: 30 day(s) Active Symbicort 160 mcg-4.5 mcg/inh ; Duration: 30 Active ipratropium 500 mcg/2.5 mL 2.5 mL by nebulizer 4 times a day; Duration: 30 day(s) Active Advair Diskus 500 mcg-50 mcg 1 INH inhaled 2 times a day; Duration: 30 day(s) Active Acetaminophen-Hydrocod one Bitartrate 325 mg-5 mg 1 tab(s) orally twice a day; Duration: 7 day(s) Fill this script first Active diclofenac sodium 50 mg 1 tab(s) orally 3 times a day; Duration: 30 day(s) 08/21/2022 Active Acetaminophen-Hydrocod one Bitartrate 325 mg-5 mg 1 tab(s) orally twice a day; Duration: 23 days Active Spiriva HandiHaler 18 mcg ; Duration: 30 Active Problems Problem Type SNOMED Code ICD Code Onset Dates Problem Status W/U Status Risk Notes Problem Degeneration of cervical intervertebral disc (90024357) Other cervical disc degeneration, unspecified cervical region (M50.30) Active confirmed Problem Long-term current use of drug therapy (463051256) Other prison (current) drug therapy (Z79.899) Active confirmed Problem Cervical radiculopathy (25226864) cervical radiculopathy (M54.12) Active confirmed Plan Of Treatment No Information Insurance Providers Payer Name Payer Address Payer Phone Subscriber Number Group Number Insured Name Patient Relationship to Insured Coverage Start Date Coverage End Date Aetna [employer] of [place] Plan [address] [place] [phone] [id number] Carlos Alberto Benson Self - patient is the insured 0 Medical (General) History Medical History History ICD Code Asthma arthritis Reflux Gallbladder Surgical History Surgery Date(Month/Year) Gallbladder Removal 2009
--- NOTE | 2025-06-14 17:10 | ED_ITS ---
Discharge Plan Disposition Patient Disposition: Left Against Medical Advice Condition: Good Prescriptions Prescriptions: No Action gabapentin 300 mg capsule 300 mg PO BID Qty: 60 2RF Trelegy Ellipta 200-62.5-25 mcg blister with device 1 inh inhalation DAILY Qty: 60 2RF nicotine (polacrilex) 2 mg gum 2 mg buccal Q2H PRN (Reason: nicotine cravings) Qty: 100 2RF Airsupra 90-80 mcg/actuation HFA aerosol inhaler 2 inh inhalation 6XD PRN (Reason: shortness of breath) Qty: 10.7 0RF albuterol sulfate 90 mcg/actuation HFA aerosol inhaler See Rx Instructions .ROUTE .COMPLEX Qty: 18 0RF Dose Instruction: INHALE 2 PUFFS BY MOUTH EVERY 4 TO 6 HOURS FOR SHORTNESS OF BREATH OR WHEEZING Rx Instructions: INHALE 2 PUFFS BY MOUTH EVERY 4 TO 6 HOURS FOR SHORTNESS OF BREATH OR WHEEZING ipratropium-albuterol 0.5 mg-3 mg(2.5 mg base)/3 mL solution for nebulization See Rx Instructions .ROUTE .COMPLEX Qty: 180 2RF Dose Instruction: INHALE CONTENTS OF 1 VIAL (3 ML) VIA NEBULIZER EVERY 6 HOURS NEEDED FOR SHORTNESS OF BREATH OR WHEEZING Rx Instructions: INHALE CONTENTS OF 1 VIAL (3 ML) VIA NEBULIZER EVERY 6 HOURS NEEDED FOR SHORTNESS OF BREATH OR WHEEZING Referrals Follow up/Referrals: Nicole Benoit APRN [Primary Care Provider, Medical] - See instructions Activity Restrictions/Add. Instructions Additional Instructions/Restrictions: To the emergency department if you develop headache vomiting or any other acute neurologic symptoms. Otherwise follow-up with your primary care provider. Clinical Impressions Clinical Impression: Ankle pain, right Print Language Print Language: Indonesian Discharge ED Provider: Mary Moss General Adult HPI General Chief complaint: Extremity Injury, Lower Stated complaint: AO 06/13/25, fell, inj right knee and ankle Time Seen by Provider: 06/14/25 17:01 History of Present Illness HPI narrative: Patient is a 65-year-old gentleman with a past medical history of emphysema who is a current smoker who presents to the emergency department with right lower extremity pain after a fall. Patient states that with his emphysema he gets coughing attacks which caused him to intermittently pass out. Patient states that he has been seen and worked up for this. Patient states that he woke up on the ground yesterday with some pain in his right ankle. Patient states that he is not sure if he hit his head but does not rightly have a headache or any vision changes. Patient denies any chest pain or abdominal pain. Patient denies any back pain. Patient has otherwise been able to ambulate. Patient states that he developed some bruising to his lower leg yesterday. Is not on any blood thinners. Patient takes some albuterol for his emphysema does not take any other daily medications. Related Data Previous Rx's ?Medication ?Instructions ?Recorded gabapentin 300 mg capsule 300 mg PO BID #60 caps 03/18 fluticasone fur. 200 mcg-umeclid 1 inh inhalation ANKIT Y #60 ea 05/23/24 62.5 mcg-vilant 25 mcg inhalat.powder (Trelegy Ellipta) nicotine (polacrilex) 2 mg gum 2 mg buccal Q2H PRN veda otine 08/04/24 cravings #100 ea albuterol 90 mcg-budesonide 80 2 inh inhalation 6XD VA N shortness 01/13/25 mcg/actuation HFA aerosol inhaler of breath #10.7 gram s (Airsupra) albuterol sulfate 90 mcg/actuation See Rx Instructions .Route 04/28/25 aerosol inhaler .COMPLEX #18 grams ipratropium 0.5 mg-albuterol 3 mg See Rx Instructions .Route 05/04/25 (2.5 mg base)/3 mL nebulization .COMPLEX #180 mL soln Allergies Allergy/AdvReac Type Severity Reaction Status Date / Time No Known Allergies Allergy Verified 07/29/24 13:48 [facility] Disclaimer: The information contained in this section may have been updated after the patient was seen, as this information can be updated by other users. Medical History (Updated 06/14/25 @ 18:45 by Mary Moss DO) Asthma-chronic obstructive pulmonary disease overlap syndrome COPD (chronic obstructive pulmonary disease) HLD (hyperlipidemia) Pneumonia Daytime somnolence Tobacco dependence syndrome Abnormal EKG Dyspnea Chest pain Surgical History (Updated 07/29/24 @ 13:54 by Barbara Mckeon) History of throat surgery History of tonsillectomy History of cholecystectomy Family History Other FH: kidney cancer Heart attack Social History Smoking Status: Current every day smoker tobacco type: cigarettes packs per day: 1 and smokeless tobacco alcohol intake: never current occupational status: employed Travel in the last 8 weeks?: None housing: other Have you lived/traveled outside US in past 30 days?: No Contact w/someone who lives/traveled outside US past 30 days?: No Exposure to someone with infectious disease in past 14 days?: No Do you have a fever (greater than 100.4 F or 38 C)?: No Have you tested positive for COVID-19?: No Exposed to someone with COVID-19 in past 14 days?: No Do you have a sore throat?: No Do you have a cough?: No Do you have any weakness?: No Do you have any diarrhea?: No Are you experiencing any unusual bleeding?: No Do you have any muscle aches/pain?: No Do you have any abdominal pain?: No Are you experiencing loss of taste or smell?: No Other Medical History Have you received the Flu Vaccine for this season: Yes Have you received the Pneumonia Vaccine: No ROS Obtained: Yes All systems reviewed & no additional complaints except as documented and Yes Systems reviewed as appropriate & no additional complaints except as documented Physical Exam General General appearance: alert and in no apparent distress Head Head exam: atraumatic, normocephalic and normal inspection Eye Eye exam: Present normal appearance, PERRL and EOMI; Absent scleral icterus ENT ENT exam: Present normal exam and normal external ear exam Neck Neck exam: Present normal inspection, full ROM and other (midline cervical spine tenderness ) Chest Chest inspection: Present normal inspection and symmetric chest wall rise Respiratory Respiratory exam: Present normal lung sounds bilaterally; Absent respiratory distress or wheezes Cardiovascular Cardiovascular exam: Present regular rate, normal rhythm and normal heart sounds Abdominal Exam Abdominal exam: Present soft and distention; Absent tenderness, guarding or rebound Extremities Exam Extremities exam: Present normal inspection, full ROM and other (RLE with tenderness on the sole of the foot, medial and lateral malleolus) Back Exam Back exam: Present normal inspection and full ROM Neurological Exam Neurological exam: Present alert, oriented X3, CN II-XII intact and reflexes normal; Absent motor sensory deficit Psychiatric Psychiatric exam: Present normal affect and normal mood Skin Skin exam: Present warm and dry Medical Decision Making Medical Records Medical records reviewed: Yes I reviewed the patient's medical records. Screening: Per USPSTF and CDC recommendations, given the prevalence of disease in our region, it is our hospital?s policy to screen for HIV and viral Hepatitis for all patients aged 18 and over and those with ongoing risk factors. Liban Inquiry Pt receiving controlled substance: No Vital Signs: 06/14/25 17:04 06/14/25 17:06 06/14/25 17:30 Temperature 98.2 F Temperature Source Oral Pulse Rate 86 80 Pulse Rate [Left] 80 Respiratory Rate 17 19 17 Blood Pressure 143/91 H Blood Pressure [Right Arm] 184/97 H Blood Pressure Mean 107 Blood Pressure Mean [Right Arm] 126 Blood Pressure Source [Right Arm] Automatic Cuff Blood Pressure Position [Right Arm] Sitting 02 Sat by Pulse Oximetry 97 95 97 Oxygen Delivery Method Room Air Room Air Room Air 06/14/25 18:00 06/14/25 18:51 Temperature 98.7 F Temperature Source Pulse Rate 74 88 Pulse Rate [Left] Respiratory Rate 19 19 Blood Pressure 146/90 H 148/79 H Blood Pressure [Right Arm] Blood Pressure Mean 107 Blood Pressure Mean [Right Arm] Blood Pressure Source [Right Arm] Blood Pressure Position [Right Arm] 02 Sat by Pulse Oximetry 97 Oxygen Delivery Method Room Air Room Air Lab Data Lab results reviewed: Yes I reviewed the patient's lab results. Orders (Tests/Meds): ORDERS Category Date Time Status CT cervical spine wo con Stat Cat Scan 06/14/25 17:[address] head/brain wo con Stat Cat Scan 06/14/25 17:16 Ordered Ankle XR -Right minimum 3 Views [XR ankle RT min 3V] Exams 06/14/25 17:16 Ordered Stat Fibula/tibia XR right 2 views [XR tibia fibula RT 2V] Exams 06/14/25 17:16 Ordered Stat Knee XR right 3 views [XR knee RT 3V] Stat Exams 06/14/25 17:16 Ordered XR calcaneus RT min 2V Stat Exams 06/14/25 17:16 Ordered XR foot RT min 3V Stat Exams 06/14/25 17:16 Ordered Medical Decision Narrative: Patient is a 55-year-old gentleman with a past medical history of emphysema c urrent smoker who presents to the emergency department with right lower extremity pain after a fall yesterday. On arrival, patient was hemodynamically stable with unremarkable vital signs. Differential includes but not limited to: Fracture, dislocation, sprain, strain, intracranial pathology, intrathoracic pathology amongst others. Patient states that he typically will get these coughing attacks which will cause him to intermittently blackout. Patient has been worked up with his primary care provider for these, patient likely with a vasovagal syncope I do not feel that further workup is indicated for this at this time. X-rays and CT scans were ordered. Patient had no thoracic or lumbar spine tenderness, patient had no chest or abdominal tenderness no bruising therefore further CT scans were not felt to be indicated at this time. Patient states that his pain was well-controlled patient did not wish to have pain medications at this time. Prior to receiving x-rays or CT scan, patient requested to leave AMA as patient did not want to wait for imaging to be done. Patient stated he would follow-up with his primary care provider tomorrow. I discussed the risks and benefits the patient ultimately signed out AMA. Critical Care Critical Care Time Critical Care Time: No
--- NOTE | 2025-06-14 17:24 | ECG_ITS ---
APPROVED REPORT Exam: Resting ECG HR:69 bpm ECG Measurements Heart Rate 69 AXES WI 140 P 72 QRSd 97 QRS 77 QT 391 T 79 QTc 411 Conclusion SINUS RHYTHM NONSPECIFIC T-WAVE ABNORMALITY BORDERLINE ECG UNCONFIRMED REPORT Electronically signed by : SHERIN LAWRENCE, 06/15/2025 23:03:08
[2025-06-14 17:30] VITALS: BP 143/91; PULSE 80; RESP 17; O2SAT 97
[2025-06-14 18:00] VITALS: BP 146/90; PULSE 74; RESP 19; O2SAT 97
--- NOTE | 2025-06-14 18:49 | PC.NURSE ---
Patient states he wishes to leave AMA, Dr. Moss notified. Dr. Moss spoke with patient and patient states he still wishes to leave AMA and follow up with PCP in AM. Crutches given to patient per Dr. Crandall order, patient verbalizes understanding of use. AMA form complete and placed on chart.
[2025-06-14 18:51] VITALS: BP 148/79; PULSE 88; RESP 19; TEMP 37.1; O2SAT 99
== END 2025-06-14 18:52 | disposition left against medical advice (07) ==
PROVIDERS: Emergency Provider Student in an Organized Health Care Education/Training Program; PCP Nurse Practitioner Family
DX: M25.571 Pain in right ankle and joints of right foot (principal); F17.210 Nicotine dependence, cigarettes, uncomplicated; J43.9 Emphysema, unspecified; W19.XXXA Unspecified fall, initial encounter
CPT/HCPCS: 93005; 99283; 99284

== ENCOUNTER 2025-06-18 07:41 | Outpatient (CLI) | payer OTHER, SELFPAY ==
--- NOTE | 2025-06-18 07:42 | XR_ITS ---
FINAL REPORT CLINICAL HISTORY: right ankle pain COMPARISON: 02/12/2018 FINDINGS: RIGHT ANKLE 3 views of the right ankle were obtained. There is a small ossific density inferior to the medial malleolus measuring 4 mm consistent with avulsion injury, not seen on the previous exam from 2018. Splint is seen laterally. The ankle mortise is intact. Visualized joint spaces are normally aligned. Soft tissues are unremarkable. IMPRESSION: Medial malleolus avulsion injury not seen on the 2018 exam. Overlying splint. Reviewed, Interpreted and Dictated by Noam Degroot MD Transcribed by Lexi Berry Authenticated and [facility]
--- OUTSIDE RECORDS SUMMARY | 2025-06-18 07:44 | XMS_ITS | Clinical Summary ---
Author Organization [facility] Address [address] [place] [phone] Phone Care Team Providers Care Day Haul Youth Supervisor Name Role Phone Unavailable Primary Care Provider [...]
--- OUTSIDE RECORDS SUMMARY | 2025-06-18 07:44 | XMS_ITS | Clinical Summary ---
Author Organization [facility] Address [address] [place] [address] Care Team Providers Care Heater Helper Name Role Phone Braydon Gordon MD Primary Care Provider [phone] Allergies No known active allergies Medications ipratropium-albute [...] SCREENING 07/24/2022 INFLUENZA VACCINE 04/17/2025 Insurance [facility] [id number] [facility] Care Teams Heater Helper Relationship Specialty Start Date End Date Braydon Gordon MD [address] [place] [address] PCP - General Family Medicine 05/03/22
--- OUTSIDE RECORDS SUMMARY | 2025-06-18 07:44 | XMS_ITS | Patient Health Record ---
Author Organization [facility] Address [address] [place] [address] [address] [place] [address] Care Team Providers Care Telecommunications Line Mechanic Name Role Phone Nicole Benoit APRN Unavailable [...] Notes Problem Degeneration of cervical intervertebral disc (49830209) Other cervical disc degeneration, unspecified cervical region (M50.30) Active confirmed Problem Long-term current use of drug therapy (611668155) Other [facility] (current) drug therapy (Z79.899) Active confirmed Problem Cervical radiculopathy (75526836) cervical radiculopathy (M54.12) Active confirmed Plan Of Treatment No Information Insurance Providers Payer Name Payer Address Payer Phone Subscriber Number Group Number Insured Name Patient Relationship to Insured Coverage Start Date Coverage End Date Aetna [employer] of [place] Plan [address] [place] [phone] [id number] Carlos Alberto Benson Self - patient is the insured 0 Medical (General) History Medical History History ICD Code Asthma arthritis Reflux Gallbladder Surgical History Surgery Date(Month/Year) Gallbladder Removal 2009
--- OUTSIDE RECORDS SUMMARY | 2025-06-18 07:44 | XMS_ITS | Data Portability ---
Author Organization [facility] - [facility] ADMIN Address [address] [place] [address] Assessment No assessment recorded. Plan of Treatment Reminders Order Date Submit Date Provider Last Modified By Organization Details Last Modified Time Details Appointments None recorded . Lab None recorded . Referral pulmonar y rehab referral 2022 023 [facility] Cardio/Pulmonar y Rehabilitation Program, [address], [place], [address], 3 13:20:34 Procedures None recorded . Surgeries [...] symptoms of lung cancer)? YES 2022 023 [facility] ([facility]), [address], [place], [address], 3 11:30:43 LDCT, chest, for lung cancer [...] symptoms of lung cancer)? YES 2022 024 [email or web address] [facility] (Centralized Scheduling), [address], [place], [address], 4 11:46:18 PFT, plethysm ography 2022 023 [email or web address] [facility] (Centralized Scheduling), [address], [place], [address], 3 08:24:50 LDCT, chest, for lung cancer [...] symptoms of lung cancer)? YES 2022 023 [facility] (Centralized Scheduling), [address], [place], [address], 3 12:00:39 Medication Orders Nicoderm CQ 14 mg/24 hr daily transder mal patch 2022 023 [facility], [address] [place] [address], [place], [place], [id number], 3 11:31:58 Breztri Aerosphe re 160 mcg-9mcg -4.8mcg/ actuatio n HFA aerosol inhaler 2022 023 [email or web address] [facility], [address] Count includes the [facility] [address] [place], [place], [id number], 3 09:08:33 Nicoderm CQ 21 mg/24 hr daily transder mal patch 2022 023 [facility], [facility] Count includes the [facility] [address], [place], [place], [id number], 11:53:25 Patient TargetsNo targets recorded. Patient Instructions Encounter Date Encounter Id Patient Instructions Last Modified By Organization Details Last Modified Time 01/01/2023 [id number] smoking cessatio n counseling, greater than 3 minutes up to 10 minutes* [email or web address] Not available 01/01/2023 11:51:19 04/10/2023 [id number] smoking cessatio n counseling, greater than 3 minutes up to 10 minutes* [email or web address] Not available 04/10/2023 15:53:04 08/15/2023 [id number] smoking cessatio n counseling, greater than 3 minutes up to 10 minutes* [email or web address] Not available 08/15/2023 11:30:42 Reason for Referral Pulmonary Rehab Referral for Pulmonary emphysema Referring Physician: Luz Maria Cooper, Pulmonary Disease, Encounter Date: 01/01/2023 Results Created Date Observation Date Name Description Value Unit Range Abnormal Flag Note LastModifiedBy Organization Detail LastModifiedTime 01/02/2001/01/2023 XR, chest , 2 view [facility] [address] [place] [address] Phone: Fax: Name: ELY BENSON Exam Date: : [birth year] Age 52 Gender : M Access ion: [id number] Physic kassy: LUZ MARIA COOPER Facili ty: [facility] Facili ty HSV: Outpat ient Exam: [...] Thank you for referr ELY Gu to [facility]. Legall y authen ticate d by POPE DAVDI Abbott 01-01 11:09: 27 CC'ed Logic: Orderi ng Provid er: KENNETH PEPE Attend ing Provid er: KENNETH PEPE Admitt ing Provid er: KENNETH PEPE fkoura [facility] - Physical Therapy [address] [facility], [place], [address], 01/01/2023 11:31:31 02/27/20 23 02/26/2023 LDCT, chest , for lung cance r sharda owen [facility] [address] [place] [address] Phone: Fax: Name: ELY BENSON Exam Date: : [birth year] Age 52 Gender : M Access ion: [id number] Physic kassy: LUZ MARIA COOPER Facili ty: [facility] Facili ty HSV: Outpat ient Exam: CT LOW DOSE LUNG SCREEN ING CT CHEST LOW DOSE SCREEN ING HISTOR Y: Curren t smoker . 30 pack year histor y. COMPAR BIJAN: None. TECHNI QUE: Axial images were obtain [...] Thank you for referr EL[facility]. Legall y authen ticate d by POPE DAVID Abbott 0 02-26 11:47: 47 CC'ed Logic: Orderi ng Provid er: KENNETH PEPE Attend ing Provid er: KENNETH PEPE Referr ing Provid er: KENNETH PEPE Admitt ing Provid er: KENNETH PEPE [facility] [address] [place] [address], [address], 02/26/2023 13:33:22 Result Notes Documentation Provider Name and Address Organization Details Recorded Time Xr, Chest, 2 View : [facility] [address] [place] [address] Name: MARCELINO ELY Exam Date: 01/01/2023 : 1970 Age 52 Gender: M Physician: LUZ MARIA COOPER Facility: [facility] Facility HSV: Outpatient Exam: CHEST 2 [...] Thank you for referring ELY BENSON to [facility]. Legally authenticated by POPE DAVID Abbott 2023-01-01 11:09:27 CC'ed Logic: Ordering Provider: KENNETH PEPE Attending Provider: KENNETH PEPE Admitting Provider: KENNETH Cooper MD [address] [place] [address], [phone] 01/01/2023 11:31:31 Ldct, Chest, For Lung Cancer Screening : [address] [address] Name: ELY BENSON Exam Date: 02/26/2023 : 1970 Age 52 Gender: M Physician: LUZ MARIA COOPER Facility: [facility] Facility HSV: Outpatient Exam: CT LOW [...] Thank you for referring ELY BENSON to [facility]. Legally authenticated by POPE DAVID Abbott 2023-02-26 11:47:47 CC'ed Logic: Ordering Provider: KENNETH PEPE Attending Provider: KENNETH PEPE Referring Provider: KENNETH PEPE Admitting Provider: KENNETH Cooper MD [address], [place], [address], [place] [facility] [place] [facility] [place] 02/26/2023 13:33:22 Problems Name Problem SNOMED Code Status Onset Date Resolution Date Notes Provider Name and Address Organization Details Recorded Time Pulmonary emphysema 21938630 Active 2022 Luz Maria Cooper MD [address], [place], [address] , [place] [facility] [place] [facility] [place] 3 11:46:45 Dyspnea on exertion 87793069 Active 2022 Luz Maria Cooper MD [address], [place], [address] , [place] [facility] [place] 3 11:47:09 Tobacco dependence caused by cigarettes 2801322558892 9107 Active 2022 Luz Maria Cooper MD [address], [place], [address] , [place] [facility] [place] 3 11:47:17 Tobacco dependence in remission 733247282 Active 2022 Luz Maria Cooper MD [address], [place], [address] , [place] [facility] [place] 3 13:42:24 Problem Notes None recorded. Medical [...] Updated DateTime 3 190.5 cm 26.3 kg/m2 84021.1 9 g 98.9 [degF] 97 % 97 % 65 /min 151/85 mm[Hg] Rj SIMS [facility] & [place] 3 11:22:51 Date Recorded Body height Body mass index (BMI) Body weight Body temperature Oxygen saturation Oxygen saturation in Arterial blood by Pulse oximetry Heart rate Systolic And Diastolic Provider Name and Address Organization Details Last Updated DateTime 3 190.5 cm 25.4 kg/m2 49236.0 5 g 99.3 [degF] 96 % 96 % 102 /min 136/91 mm[Hg] Anusha Skinner FELICIA [facility] & [place] 3 15:27:06 Date Recorded Body height Body weight Body temperature Oxygen saturation Oxygen saturation in Arterial blood by Pulse oximetry Heart rate Systolic And Diastolic Provider Name and Address Organization Details Last Updated DateTime 3 190.5 cm 19404.0 1 g 98.9 [degF] 97 % 97 % 79 /min 135/81 mm[Hg] Rj SIMS [facility] & [place] 3 11:02:26 Social History Question Answer Notes LastModified by Referly Details LastModified Time Tobacco Smoking Status Current Every Day Smoker BETHANY Carmichael NT [facility] & [place] 01/01/2023 11:20:23 What Is Your Level Of Caffeine Consumption? Moderate [email or web address] Information not available 01/01/2023 Which Illicit Or Recreational Drugs Have You Used? Marijuana [email or web address] Information not available 01/01/2023 At What Age Did You Start Smoking Tobacco? 14 [email or web address] Information not available 01/01/2023 How Much Tobacco Do You Smoke? 1 PPD [email or web address] Information not available 01/01/2023 Sex: Unknown Functional Status Question Answer Note LastModified by Organizat ion Details LastModified Time Do you use any illicit or recreational drugs? Yes [email or web address] Information not available 01/01/2023 What is your level of alcohol consumption? Occasional [email or web address] Information not available 01/01/2023 Mental Status None recorded. Family History Relationship Description Onset Age of this Age Resolved Age Notes LastModified by Organization Details LastModified Time Father No current problems or disability [email or web address] Not available 0 01/01/2023 11:19:32 Mother No current problems or disability [email or web address] Not available 0 01/01/2023 11:19:32 Medical History No medical history recorded. Past Encounters Encounter ID Performer Location Encounter Start Date Encounter Closed Date Diagnosis/Indication Diagnosis SNOMED-CT Code Diagnosis ICD10 Code Diagnosis IMO Codes Diagnosis Note [id number] Luz Maria Cooper MD [facility] [address] [facility] [place] [address] 01/01/2023 11:06:38 01/01/2023 12:01:33 Pulmonary emphysema 37254362 J43.9 Images and report of chest x-ray [...] basis. Tobacco de pendence caused by cigarettes 6327417049 0376392 F17.210 Patient counseled extensivel y to quit smoking and will continue follow this up and arrange for him to have nicotine supplement to help him in this process. Screening for malignant neoplasm of respiratory tract 418965128 Z12.2 The patient has participat ed in [...] or unexplaine d significan t weight loss). [id number] Luz Maria Cooper MD [facility] [address] [facility] [address] [place] [address] 04/10/2023 15:19:55 04/10/2023 15:43:45 Pulmonary emphysema 91636114 J43.9 Results of full PFTs with DLCO [...] basis. Tobacco de pendence caused by cigarettes 6057096108 5538756 F17.210 Patient counseled extensivel y to quit smoking and will continue follow this up and to continue with the use of nicotine supplement . Images and report of low-dose CT of the chest done recently were reviewed and discussed with the patient, there is no evidence of malignancy and will continue with annual testing. Screening for malignant neoplasm of respiratory tract 705821201 Z12.2 The patient has participat ed in [...] unexplaine d significan t weight loss). At [facility] risk of polypharmacy 177541660 Z91.89 I had very lengthy discussion with patient regarding his inhalers use and it should be restricted to Trelegy once a day and Meseret only to use on a p.r.n. basis. And patient voiced understand ing and repeated the instructio ns correctly. [id number] Luz Maria Cooper MD [facility] [address] [facility] [address] [place] [address] 08/15/2023 10:58:58 08/15/2023 11:22:39 Pulmonary emphysema 01317638 J43.9 Patient instructed to use his Trelegy daily.Laurie ent use Meseret on a p.r.n. basis.Laurie ent instructed to call if there is any new symptoms. Dyspnea on exertion 6084 5006 R06.09 Patient recommende d to exercise as tolerated and to use his Meseret on a p.r.n. basis. Tobacco de pendence caused by cigarettes 9923524293 2663376 F17.210 Patient counseled extensivel y to quit smoking and will continue follow this up. Will arrange for the patient to have nicotine supplement to help him in this process.Toni yanes to have his annual low-dose CT of the chest for lung cancer screening as scheduled in February 2024. Screening for malignant neoplasm of respiratory tract 691346892 Z12.2 The patient has participat ed in [...] significan t weight loss). Immunization advised 310 658627 Z71.9 Patient recommende d to receive flu [...] Member ID Guarantor Name 08/12/2023 1 [employer] [facility] (MEDICAID HMO) Ely Benson [id number] Ely Benson 04/10/2023 1 [employer] [facility] (MEDICAID HMO) Ely Benson [id number] Ely Benson 04/10/2023 1 [employer] [facility] (MEDICAID HMO) Ely Marcelino [id number] Ely Marcelino Notes Date Note Type Note [...] his teenage years. Luz Maria Cooper MD [address] [facility], [place], [address], [facility] - [place] [facility] [place] 01/18/2023 13:43:33 04/10/2023 text/html Patient presents to [...] Luz Maria Cooper MD [address], [place], [address], [facility] 04/10/2023 15:54:49 08/15/2023 text/html Patient presents to [...] Luz Maria Cooper MD [address], [place], [address], [facility] & [place] 08/15/2023 11:31:07
== END 2025-06-18 23:59 | disposition home or self-care (01) ==
LOC: RAD 07:42
PROVIDERS: PCP Nurse Practitioner Family; Visit Provider Orthopaedic Surgery
DX: S93.04XA Dislocation of right ankle joint, initial encounter (principal)
CPT/HCPCS: 73610

== ENCOUNTER 2025-07-09 07:37 | Outpatient (CLI) | payer OTHER, SELFPAY ==
--- OUTSIDE RECORDS SUMMARY | 2025-07-06 22:02 | XMS_ITS | Continuity of Care Document ---
Author Organization [facility] Phone Care Team Providers Care Ethyl Blender Name Role Phone KYLIE STEARNS Primary Care EVANS COOK Surgeon Unavailable EVANS COOK Primary Attending Unavailable EVANS COOK Admitting Unavailable ALLERGIES AND ADVERSE REACTIONS ALLERGIES AND ADVERSE REACTIONS Code System Allergy Substance Adverse Reaction Date Reaction (Severity) Comment Status Reported By Updated By No Known Allergies [id number] on June 15, 2025 12:46:26 PM [facility] RESULTS Patient: AUDIE GRAVES Date of : 1970 8 LABORATORY RESULTS Information is not available LABORATORY NARRATIVE RESULTS Information is not available RADIOLOGY RESULTS ORDER 100: KNEE 1 TO 2V RT ( LOINC: 98626-4) ORDER DATE: June 15, 2025 12:54:00 PM [facility] PERFORMING LAB: [address] [id number] Final Result Date: June 15, 2025 1:13:[address] [address] Name: ELY BRONSON Exam Date: 06/15/2025 : 1970 Age 55 years Gender: M Physician: EVANS COOK Facility: [facility] Facility HSV: Outpatient Exam: KNEE 1 TO 2V RT PROCEDURE DESCRIPTION: KNEE 1 TO 2V RT CLINICAL INDICATION: Swelling with Trauma/Injury. TECHNIQUE: 2 views / images submitted. COMPARISON: No prior studies were compared. FINDINGS: There is no evidence of acute fracture or dislocation. IMPRESSION: No acute fracture. If clinical concern persists, follow-up is recommended in one week. Electronically signed by: Maximus Mckeon MD 06/15/2025 09:13 AM EDT RP Dictated By: MAXIMUS MCKEON Transcribed By: Transcribed On: 06/15/2025 9:13 AM Electronically signed by: MAXIMUS MCKEON 06/15/2025 Thank you for referring ELY BRONSON to [facility]. Legally authenticated by MIKE Andrade 2025-06-15 09:13:20 ORDER 200: ANKLE 3V RT (LOIN C: 18219-9) ORDER DATE: June 15, 2025 12:54:00 PM [facility] PERFORMING LAB: [address] [id number] Final Result Date: June 15, 2025 1:17:[address] [address] Name: ELY BRONSON Exam Date: 06/15/2025 : 1970 Age 55 years Gender: M Physician: EVANS COOK Facility: [facility] Facility HSV: Outpatient Exam: ANKLE 3V RT RIGHT ANKLE RADIOGRAPH, 3 VIEWS CLINICAL HISTORY: Swelling trauma, injury. FINDINGS: Frontal, lateral, and oblique views of the right ankle are reviewed. No comparison images. There is an acute avulsion fracture involving the right medial malleolus. The ankle mortise is intact. The tibiotalar articulation is maintained. Moderate overlying soft tissue swelling. IMPRESSION: Acute avulsion fracture of the right medial malleolus. Electronically signed by: Sheila Yeh MD 06/15/2025 09:17 AM EDT RP Dictated By: Sheila Yeh Transcribed By: Transcribed On: 06/15/2025 9:17 AM Electronically signed by: Sheila Yeh 06/15/2025 Thank you for referring ELY BRONSON to [facility]. Legally authenticated by TRINY WHITE 2025-06-15 09:17:46 PATHOLOGY NARRATIVE RESULTS Information is not available MICROBIOLOGY RESULTS No Micro Labs/Results Exist for Patient BLOOD ADMIN RESULTS Information is not available MEDICATIONS HOME MEDICATIONS Status RXNORM NDC Medication Dose Route Frequency Dates Comments Reported By Updated By Drug Treatment Unknown DISCHARGE MEDICATIONS Status RXNORM NDC Medication Dose Route Frequency Dates Dis pense Data Comments Physician Updated By No Discharge Medication Info rmation Available INPATIENT MEDICATIONS Status RXNORM NDC Medication Dose Route Frequency Rat e Quantity Dates Indication Dispense Data Comments Physician Updated By No Inpatient Medication Info rmation Available SOCIAL HISTORY SOCIAL HISTORY - Smoking Status SNOMED-CT Social History Element Description Effective Dates Offered Cessation Comment Updated By [id number] Current Tobacco smoking status Current Every Day Smoker [id number] on June 15, 2025 12:46:36 PM UTC SOCIAL HISTORY - Gender Sex: Male SOCIAL HISTORY - Status : status i nformation is not available Intention in Next Year: intention information is not available SOCIAL HISTORY - Assessments Code System Description Status Date Value of Assessment Updated By Comment Assessment Information is no t available SOCIAL HISTORY - [place] Affiliation [place] information is not av ailable SOCIAL HISTORY - Legal Sex Legal Sex information is not available SOCIAL HISTORY - Sexual Behavior Sexual Orientation Gender Identity SNOMED-CT Description SNO MED -CT Description Activity Level No of Partners Partner Type UpdatedBy Information is not available SOCIAL HISTORY - Occupation Occupation information is no t available VITAL SIGNS PATIENT VITAL SIGNS This section displays the mo st recent value for each vital sign as of July 07, 2025 2:02:02 AM UTC Loinc Code Vital Sign Activity Date Result Updated By 8310-5 Body temperature June 15 12:44:00 PM UTC 97.8 [degF] 8462-4 Diastolic blood pressure [facility] 2024 12:45:00 PM UTC 86.0 mm[Hg] 8867-4 Heart rate June 15 2:45:00 PM UTC 67 /min 90974-3 Oxygen saturation in Arterial blood by Pulse oximetry June 15, 2025 2:45:00 PM UTC 95.0 % 9279-1 Respiratory rate June 15 2:45:00 PM UTC 18 /min 8480-6 Systolic blood pressure [facility] r 2024 12:45:00 PM UTC 177.0 mm[Hg] PEDIATRIC GROWTH CHART - VITAL SIGNS This section displays Head C ircumference Percentile, Weight for Length Percentile and BMI Percentile Loinc Code Pediatric Measure Age (Months) Result Updat ed By No Pediatric Growth Chart Pe rcentile Information Available. HEALTH CONCERNS Problems Concern Status Health Concern problem infor mation not available. Smoking Status Status Years Used Consumed packs p er day Health Concern smoking histo ry information not available. Family History Concern Status Health Concern family histor y information not available. ENCOUNTERS ENCOUNTER INFORMATION Reason for Visit FALL INJURY T-2 @170 0 Admission June 15, 2025 12:34:00 PM [facility] [address] [facility] [phone] Discharge June 15, 2025 3:02:00 PM UT C DISCHARGED TO HOME OR SELF CARE ENCOUNTER DIAGNOSES Notes information is not ismael ilable. Code System Diagnosis Onset Date Diagnosis information is not available. ABSTRACT DIAGNOSES Code System Diagnosis Updated By Abatement Date S99.911A ICD10 UNSPECIFIED INJU RY OF RIGHT ANKLE, INITIAL ENCOUNTER [id number] on June 17, 2025 7:40:54 AM UT M25.571 ICD10 PAIN IN RIGHT AN KLE AND JOINTS OF RIGHT FOOT [id number] on June 17, 2025 7:40:54 AM UT R05.9 ICD10 COUGH, UNSPECIFIED [id number] o n June 17, 2025 7:40:54 AM UT S82.51XA ICD10 DISPLACED FRACTU RE OF MEDIAL MALLEOLUS OF RIGHT TIBIA, INITIAL ENCOUNTER FOR CLOSED FRACTURE [id number] on June 17, 2025 7:40:54 AM UT F17.210 ICD10 NICOTINE DEPENDE NCE, CIGARETTES, UNCOMPLICATED [id number] on June 17, 2025 7:40:54 AM UT W19.XXXA ICD10 UNSPECIFIED FALL , INITIAL ENCOUNTER [id number] on June 17, 2025 7:40:54 AM [facility] CARE TEAM Care Ethyl Blender Role KYLIE STEARNS Primary Care EVANS COOK Surgeon EVANS COOK Primary Attending EVANS COOK Admitting CARE TEAM CARE water supervisor Role on Team Location Telecom Status Start Date End Hood e Updated By JOEY ROSAS Surgeon normal June 15, 2025 12:34:00 PM [facility] June 15, 2025 3:02:00 PM [facility] [id number] on June 17, 2025 7:41:52 AM [facility] JOEY ROSAS Attending normal June 15, 2025 1:02:24 PM [facility] June 15, 2025 3:02:00 PM [facility] [id number] on June 17, 2025 7:41:52 AM [facility] JOEY ROSAS Admitting normal June 15, 2025 1:02:24 PM [facility] June 15, 2025 3:02:00 PM [facility] [id number] on June 17, 2025 7:41:52 AM [facility] DARYN ESPINAL PCP normal June 15, 2025 12:35:13 PM [facility] June 15, 2025 3:02:00 PM [facility] [id number] on June 17, 2025 7:41:52 AM [facility]
--- OUTSIDE RECORDS SUMMARY | 2025-07-09 07:40 | XMS_ITS | Clinical Summary ---
Author Organization [facility] Address [address] [place] [address] Phone Care Team Providers Care Seedling Puller Name Role Phone Unavailable Primary Care Provider [...] of 2) 2019 COVID-19 Vaccine (1 - 2024-2 6 season) 2025 Influenza Vaccine (#1) 2025 Meningococcal B Vaccine Aged Out No l onger eligible based on patient's age to complete this topic Insurance CORRECT CARE
--- OUTSIDE RECORDS SUMMARY | 2025-07-09 07:40 | XMS_ITS | Data Portability ---
Author Organization [facility] - [facility] ADMIN Address [address] [place] [address] Assessment No assessment recorded. Plan of Treatment Reminders Order Date Submit Date Provider Last Modified By Organization Details Last Modified Time Details Appointments None recorded . Lab None recorded . Referral pulmonar y rehab referral 2022 023 [facility] Cardio/Pulmonar y Rehabilitation Program, [address], [place], [address], 3 13:20:34 Procedures None recorded . Surgeries [...] symptoms of lung cancer)? YES 2022 023 [facility] (Centralized Scheduling), [address], [place], [address], 3 11:30:43 LDCT, chest, for lung cancer [...] symptoms of lung cancer)? YES 2022 024 [email or web address] [facility] (Centralized Scheduling), [address], [place], [address], 4 11:46:18 PFT, plethysm ography 2022 023 [email or web address] [facility] (Centralized Scheduling), [address], [place], [address], 3 08:24:50 LDCT, chest, for lung cancer [...] symptoms of lung cancer)? YES 2022 023 [facility] (Centralized Scheduling), [address], [place], [address], 3 12:00:39 Medication Orders Nicoderm CQ 14 mg/24 hr daily transder mal patch 2022 023 [facility], [address] [place] [address], [place], [place], [id number], 3 11:31:58 Breztri Aerosphe re 160 mcg-9mcg -4.8mcg/ actuatio n HFA aerosol inhaler 2022 023 [email or web address] [facility], [address] [facility] [address] [place], [place], [id number], 3 09:08:33 Nicoderm CQ 21 mg/24 hr daily transder mal patch 2022 023 [facility], [facility] [facility] [address], [place], [place], [id number], 11:53:25 Patient TargetsNo targets recorded. Patient Instructions Encounter Date Encounter Id Patient Instructions Last Modified By Organization Details Last Modified Time 01/01/2023 [id number] smoking cessatio n counseling, greater than 3 minutes up to 10 minutes* [email or web address] Not available 01/01/2023 11:51:19 04/10/2023 [id number] smoking cessatio n counseling, greater than 3 minutes up to 10 minutes* [email or web address] Not available 04/10/2023 15:53:04 08/15/2023 [id number] smoking cessatio n counseling, greater than 3 minutes up to 10 minutes* [email or web address] Not available 08/15/2023 11:30:42 Reason for Referral Pulmonary Rehab Referral for Pulmonary emphysema Referring Physician: Luz Maria Cooper, Pulmonary Disease, Encounter Date: 01/01/2023 Results Created Date Observation Date Name Description Value Unit Range Abnormal Flag Note LastModifiedBy Organization Detail LastModifiedTime 01/02/2001/01/2023 XR, chest , 2 view [facility] [address] [place] [address] Phone: Fax: Name: ELY BENSON Exam Date: : [birth year] Age 52 Gender : M Access ion: [id number] Physic kassy: LUZ MARIA COOPER Facili ty: [facility] Facili ty HSV: Outpat ient Exam: CHEST [...] Thank you for referr ELY Gu to [facility]. Legall y authen ticate d by POPE DAVID Abbott 01-01 11:09: 27 CC'ed Logic: Orderi ng Provid er: KENNETH PEPE Attend ing Provid er: KENNETH PEPE Admitt ing Provid er: KENNETH PEPE fkoura [facility] - Physical Therapy [address] [facility], [place], [address], 01/01/2023 11:31:31 02/27/20 23 02/26/2023 LDCT, chest , for lung cance r sharda owen [facility] [address] [place] [address] Phone: Fax: Name: ELY BENSON Exam Date: : [birth year] Age 52 Gender : M Access ion: [id number] Physic kassy: LUZ MARIA COOPER Facili ty: [facility] Facili ty HSV: Outpat ient Exam: CT [...] Thank you for referr ELY Gu to [facility]. Legall y authen ticate d by POPE DAVID Abbott 0 02-26 11:47: 47 CC'ed Logic: Orderi ng Provid er: KENNETH PEPE Attend ing Provid er: KENNETH PEPE Referr ing Provid er: KENNETH PEPE Admitt ing Provid er: KENNETH PEPE [facility] - Physical Therapy [address] [place] [address], [address], 02/26/2023 13:33:22 Result Notes Documentation Provider Name and Address Organization Details Recorded Time Xr, Chest, 2 View : [facility] [address] [place] [address] Name: MARECLINO ELY Exam Date: 01/01/2023 : 1970 Age 52 Gender: M Physician: LUZ MARIA COOPER Facility: [facility] Facility HSV: Outpatient Exam: CHEST 2 VIEWS [...] Thank you for referring ELY BENSON to [facility]. Legally authenticated by POPE DAVID Abbott 2023-01-01 11:09:27 CC'ed Logic: Ordering Provider: KENNETH PEPE Attending Provider: KENNETH PEPE Admitting Provider: KENNETH Cooper MD [address] [place] [address], [id number] 01/01/2023 11:31:31 Ldct, Chest, For Lung Cancer Screening : [address] [address] Name: ELY BENSON Exam Date: 02/26/2023 : 1970 Age 52 Gender: M Physician: LUZ MARIA COOPER Facility: [facility] Facility HSV: Outpatient Exam: CT LOW DOSE [...] Thank you for referring ELY BENSON to [facility]. Legally authenticated by POPE DAVDI Abbott 2023-02-26 11:47:47 CC'ed Logic: Ordering Provider: KENNETH PEPE Attending Provider: KENNETH PEPE Referring Provider: KENNETH PEPE Admitting Provider: KENNETH Cooper MD [address], [place], [address], [place] - [facility] - [place] & [place] 02/26/2023 13:33:22 Problems Name Problem SNOMED Code Status Onset Date Resolution Date Notes Provider Name and Address Organization Details Recorded Time Pulmonary emphysema 34237585 Active 2022 Luz Maria Cooper MD [address], [place], [address] , [place] - [facility] - [place] 3 11:46:45 Dyspnea on exertion 06439791 Active 2022 Luz Maria Cooper MD [address], [place], [address] , [place] [facility] [place] 3 11:47:09 Tobacco dependence caused by cigarettes 9943319008365 9107 Active 2022 Luz Maria Cooper MD [address], [place], [address] , [place] [facility] [place] 3 11:47:17 Tobacco dependence in remission 718864478 Active 2022 Luz Maria Cooper MD [address], [place], [address] , [place] [facility] [place] 3 13:42:24 Problem Notes None recorded. Medical [...] Updated DateTime 3 190.5 cm 26.3 kg/m2 38254.1 9 g 98.9 [degF] 97 % 97 % 65 /min 151/85 mm[Hg] Rj SIMS [facility] & [place] 3 11:22:51 Date Recorded Body height Body mass index (BMI) Body weight Body temperature Oxygen saturation Oxygen saturation in Arterial blood by Pulse oximetry Heart rate Systolic And Diastolic Provider Name and Address Organization Details Last Updated DateTime 3 190.5 cm 25.4 kg/m2 36565.0 5 g 99.3 [degF] 96 % 96 % 102 /min 136/91 mm[Hg] Anusha Skinner FELICIA [facility] & [place] 3 15:27:06 Date Recorded Body height Body weight Body temperature Oxygen saturation Oxygen saturation in Arterial blood by Pulse oximetry Heart rate Systolic And Diastolic Provider Name and Address Organization Details Last Updated DateTime 3 190.5 cm 36778.0 1 g 98.9 [degF] 97 % 97 % 79 /min 135/81 mm[Hg] [facility] & [place] 3 11:02:26 Social History Question Answer Notes LastModified by [email or web address] Details LastModified Time Tobacco Smoking Status Current Every Day Smoker BETHANY Carmichael NT [facility] & [place] 01/01/2023 11:20:23 What Is Your Level Of Caffeine Consumption? Moderate [email or web address] Information not available 01/01/2023 Which Illicit Or Recreational Drugs Have You Used? Marijuana [email or web address] Information not available 01/01/2023 At What Age Did You Start Smoking Tobacco? 14 [email or web address] Information not available 01/01/2023 How Much Tobacco Do You Smoke? 1 PPD [email or web address] Information not available 01/01/2023 Sex: Unknown Functional Status Question Answer Note LastModified by Organizat ion Details LastModified Time Do you use any illicit or recreational drugs? Yes [email or web address] Information not available 01/01/2023 What is your level of alcohol consumption? Occasional [email or web address] Information not available 01/01/2023 Mental Status None recorded. Family History Relationship Description Onset Age of this Age Resolved Age Notes LastModified by Organization Details LastModified Time Father No current problems or disability [email or web address] Not available 0 01/01/2023 11:19:32 Mother No current problems or disability [email or web address] Not available 0 01/01/2023 11:19:32 Medical History No medical history recorded. Past Encounters Encounter ID Performer Location Encounter Start Date Encounter Closed Date Diagnosis/Indication Diagnosis SNOMED-CT Code Diagnosis ICD10 Code Diagnosis IMO Codes Diagnosis Note [id number] Luz Maria Cooper MD [facility] [address] [facility] [place] [address] 01/01/2023 11:06:38 01/01/2023 12:01:33 Pulmonary emphysema 36065152 J43.9 Images and report of chest x-ray [...] basis. Tobacco de pendence caused by cigarettes 7109090556 9933863 F17.210 Patient counseled extensivel y to quit smoking and will continue follow this up and arrange for him to have nicotine supplement to help him in this process. Screening for malignant neoplasm of respiratory tract 475087529 Z12.2 The patient has participat ed in [...] or unexplaine d significan t weight loss). [id number] Luz Maria Cooper MD [facility] [address] [facility] [place] [address] 04/10/2023 15:19:55 04/10/2023 15:43:45 Pulmonary emphysema 70960534 J43.9 Results of full PFTs with DLCO [...] basis. Tobacco de pendence caused by cigarettes 7847813519 0795581 F17.210 Patient counseled extensivel y to quit smoking and will continue follow this up and to continue with the use of nicotine supplement . Images and report of low-dose CT of the chest done recently were reviewed and discussed with the patient, there is no evidence of malignancy and will continue with annual testing. Screening for malignant neoplasm of respiratory tract 366945364 Z12.2 The patient has participat ed in [...] unexplaine d significan t weight loss). At [facility] risk of polypharmacy 890816463 Z91.89 I had very lengthy discussion with patient regarding his inhalers use and it should be restricted to Trelegy once a day and Meseret only to use on a p.r.n. basis. And patient voiced understand ing and repeated the instructio ns correctly. [id number] Luz Maria Cooper MD [facility] [address] [facility] [place] [address] 08/15/2023 10:58:58 08/15/2023 11:22:39 Pulmonary emphysema 57942295 J43.9 Patient instructed to use his Trelegy daily.Laurie ent use Meseret on a p.r.n. basis.Laurie ent instructed to call if there is any new symptoms. Dyspnea on exertion 6084 5006 R06.09 Patient recommende d to exercise as tolerated and to use his Meseret on a p.r.n. basis. Tobacco de pendence caused by cigarettes 4252612115 0889721 F17.210 Patient counseled extensivel y to quit smoking and will continue follow this up. Will arrange for the patient to have nicotine supplement to help him in this process.Toni yanes to have his annual low-dose CT of the chest for lung cancer screening as scheduled in February 2024. Screening for malignant neoplasm of respiratory tract 802158791 Z12.2 The patient has participat ed in [...] significan t weight loss). Immunization advised 310 946950 Z71.9 Patient recommende d to receive flu [...] Member ID Guarantor Name 08/12/2023 1 [employer] [facility] (MEDICAID HMO) Ely Benson [id number] Ely Benson 04/10/2023 1 [employer] [facility] (MEDICAID HMO) Ely Benson [id number] Ely Benson 04/10/2023 1 [employer] [facility] (MEDICAID HMO) Ely Marcelino [id number] Ely Marcelino Notes Date Note Type Note [...] his teenage years. Luz Maria Cooper MD [address] [facility], [place], [address], [facility] - [place] 01/18/2023 13:43:33 04/10/2023 text/html Patient presents to [...] Luz Maria Cooper MD [address], [place], [address], [facility] 04/10/2023 15:54:49 08/15/2023 text/html Patient presents [...] Luz Maria Cooper MD [address], [place], [address], [facility] & [place] 08/15/2023 11:31:07
--- OUTSIDE RECORDS SUMMARY | 2025-07-09 07:40 | XMS_ITS | Clinical Summary ---
Author Organization [facility] Address [address] [place] [address] Care Team Providers Care Ceramic Tile Setter Name Role Phone Braydon Gordon MD Primary Care Provider [phone] Allergies No known active allergies Medications ipratropium-albute [...] SCREENING 07/24/2022 INFLUENZA VACCINE 04/17/2025 [facility] [id number] [facility] Care Teams Ceramic Tile Setter Relationship Specialty Start Date End Date Braydon Gordon MD [address] [place] [address] PCP - General Family Medicine 05/03/22
--- NOTE | 2025-07-09 07:42 | XR_ITS ---
FINAL REPORT CLINICAL HISTORY: right ankle fx followup COMPARISON: 06/18/2025 FINDINGS: RIGHT ANKLE Three views demonstrate a corticated avulsion fracture fragment adjacent to the tip of the lateral malleolus, similar to the prior exam of 06/18/2025. No new osseous abnormality is identified. The joint spaces appear normal. IMPRESSION: No significant change in the corticated avulsion fracture fragment adjacent to the tip of the lateral malleolus since the prior exam. Reviewed, Interpreted and Dictated by Neymar Richards MD Transcribed by Rosalinda Kate Authenticated and [facility]
== END 2025-07-09 23:59 | disposition home or self-care (01) ==
LOC: RAD 07:38
PROVIDERS: PCP Nurse Practitioner Family; Visit Provider Physician Assistant Surgical
DX: S82.51XD Displaced fracture of medial malleolus of right tibia, subsequent encounter for closed fracture with routine healing (principal); X58.XXXD Exposure to other specified factors, subsequent encounter
CPT/HCPCS: 73610

== ENCOUNTER 2025-07-20 06:40 | Outpatient (CLI) | payer OTHER, SELFPAY ==
--- OUTSIDE RECORDS SUMMARY | 2025-07-20 06:42 | XMS_ITS | Clinical Summary ---
Author Organization [facility] Address [address] [place] [address] Care Team Providers Care Steam Plant Records Clerk Name Role Phone Braydon Gordon MD Primary Care Provider [phone] Allergies No known active allergies Medications ipratropium-albute [...] SCREENING 07/24/2022 INFLUENZA VACCINE 04/17/2025 [facility] [id number] [facility] Care Teams Steam Plant Records Clerk Relationship Specialty Start Date End Date Braydon Gordon MD [address] [place] [address] PCP - General Family Medicine 05/03/22
--- OUTSIDE RECORDS SUMMARY | 2025-07-20 06:42 | XMS_ITS | Data Portability ---
Author Organization [facility] ADMIN Address [address] [place] [id number] Assessment No assessment recorded. Plan of Treatment Reminders Order Date Submit Date Provider Last Modified By Organization Details Last Modified Time Details Appointments None recorded . Lab None recorded . Referral pulmonar y rehab referral 2022 023 [facility] Cardio/Pulmonar y Rehabilitation Program, [address], [place], [address], 3 13:20:34 Procedures None recorded . Surgeries [...] symptoms of lung cancer)? YES 2022 023 [facility] (Centralized Scheduling), [address], [place], [address], 3 11:30:43 LDCT, chest, for lung cancer [...] symptoms of lung cancer)? YES 2022 024 [email or web address] [facility] (Centralized Scheduling), [address], [place], [address], 4 11:46:18 PFT, plethysm ography 2022 023 [facility] (Centralized Scheduling), [address], [place], [address], 3 08:24:50 LDCT, chest, for lung cancer [...] symptoms of lung cancer)? YES 2022 023 [facility] (Centralized Scheduling), [address], [place], [address], 3 12:00:39 Medication Orders Nicoderm CQ 14 mg/24 hr daily transder mal patch 2022 023 [facility], [address] [place] [address], [place], [place], [id number], 3 11:31:58 Breztri Aerosphe re 160 mcg-9mcg -4.8mcg/ actuatio n HFA aerosol inhaler 2022 023 [email or web address] [facility], [address] [place], [place], [id number], 3 09:08:33 Nicoderm CQ 21 mg/24 hr daily transder mal patch 2022 023 [facility], [facility] [address], [place], [place], [id number], 11:53:25 Patient TargetsNo targets recorded. Patient Instructions Encounter Date Encounter Id Patient Instructions Last Modified By Organization Details Last Modified Time 01/01/2023 [id number] smoking cessatio n counseling, greater than 3 minutes up to 10 minutes* [email or web address] Not available 01/01/2023 11:51:19 04/10/2023 [id number] smoking cessatio n counseling, greater than 3 minutes up to 10 minutes* [email or web address] Not available 04/10/2023 15:53:04 08/15/2023 [id number] smoking cessatio n counseling, greater than 3 minutes up to 10 minutes* [email or web address] Not available 08/15/2023 11:30:42 Reason for Referral Pulmonary Rehab Referral for Pulmonary emphysema Referring Physician: Luz Maria Cooper, Pulmonary Disease, Encounter Date: 01/01/2023 Results Created Date Observation Date Name Description Value Unit Range Abnormal Flag Note LastModifiedBy Organization Detail LastModifiedTime 01/02/2001/01/2023 XR, chest , 2 view [facility] [address] [place] [address] Phone: Fax: Name: ELY BENSON Exam Date: : [birth year] Age 52 Gender : M Access ion: [id number] Physic kassy: LUZ MARIA COOPER Facili ty: [facility] Facili ty HSV: Outpat [...] By: DAVID ARITA Transc ribed By: David Artia Transc ribed On: 023 11:09 AM Electr onical ly signed by: DAVID ARITA Thank you for referr ELY Gu to [facility]. Legall y authen ticate d by POPE DAVID Abbott 01-01 11:09: 27 CC'ed Logic: Orderi ng Provid er: KENNETH PEPE Attend ing Provid er: KENNETH PEPE Admitt ing Provid er: KENNETH PEPE fkoura [facility] [address] [facility], [place], [address], 01/01/2023 11:31:31 02/27/20 23 02/26/2023 LDCT, chest , for lung cance r sharda owen [facility] [address] [place] [address] Phone: Fax: Name: ELY BENSON Exam Date: : [birth year] Age 52 Gender : M Access ion: [id number] Physic kassy: LUZ MARIA COOPER Facili ty: [facility] Facili ty HSV: Outpat [...] Thank you for referr ELY Gu to [facility]. Legall y authen ticate d by POPE DAVID Abbott 0 02-26 11:47: 47 CC'ed Logic: Orderi ng Provid er: KENNETH PEPE Attend ing Provid er: KENNETH PEPE Referr ing Provid er: KENNETH PEPE Admitt ing Provid er: KENNETH PEPE [facility] [address] [place] [address], [address], 02/26/2023 13:33:22 Result Notes Documentation Provider Name and Address Organization Details Recorded Time Xr, Chest, 2 View : [facility] [address] [place] [address] Name: MARCELINO ELY Exam Date: 01/01/2023 : 1970 Age 52 Gender: M Physician: LUZ MARIA COOPER Facility: [facility] Facility HSV: Outpatient Exam: [...] Thank you for referring ELY BENSON to [facility]. Legally authenticated by POPE DAVID Abbott 2023-01-01 11:09:27 CC'ed Logic: Ordering Provider: KENNETH PEPE Attending Provider: KENNETH PEPE Admitting Provider: KENNETH Cooper MD [address] [place] [address], [phone] 01/01/2023 11:31:31 Ldct, Chest, For Lung Cancer Screening : [address] [address] Name: ELY BENSON Exam Date: 02/26/2023 : 1970 Age 52 Gender: M Physician: LUZ MARIA COOPER Facility: [facility] Facility HSV: Outpatient Exam: [...] Thank you for referring ELY BENSON to [facility]. Legally authenticated by POPE DAVID Abbott 2023-02-26 11:47:47 CC'ed Logic: Ordering Provider: KENNETH PEPE Attending Provider: KENNETH PEPE Referring Provider: KENNETH PEPE Admitting Provider: KENNETH Cooper MD [address], [place], [address], [place] [facility] [place] [facility] [place] 02/26/2023 13:33:22 Problems Name Problem SNOMED Code Status Onset Date Resolution Date Notes Provider Name and Address Organization Details Recorded Time Pulmonary emphysema 63101276 Active 2022 Luz Maria Cooper MD [address], [place], [address] , [place] [facility] [place] [facility] [place] 3 11:46:45 Dyspnea on exertion 07091747 Active 2022 Luz Maria Cooper MD [address], [place], [address] , [place] [facility] [place] 3 11:47:09 Tobacco dependence caused by cigarettes 1021029448042 9107 Active 2022 Luz Maria Cooper MD [address], [place], [address] , [place] [facility] [place] 3 11:47:17 Tobacco dependence in remission 929962011 Active 2022 Luz Maria Cooper MD [address], [place], [address] , [place] [facility] [place] 3 13:42:24 Problem Notes None recorded. Medical [...] Updated DateTime 3 190.5 cm 26.3 kg/m2 40616.1 9 g 98.9 [degF] 97 % 97 % 65 /min 151/85 mm[Hg] Rj SIMS [facility] & [place] 3 11:22:51 Date Recorded Body height Body mass index (BMI) Body weight Body temperature Oxygen saturation Oxygen saturation in Arterial blood by Pulse oximetry Heart rate Systolic And Diastolic Provider Name and Address Organization Details Last Updated DateTime 3 190.5 cm 25.4 kg/m2 74163.0 5 g 99.3 [degF] 96 % 96 % 102 /min 136/91 mm[Hg] Anusha Skinner FELICIA [facility] & [place] 3 15:27:06 Date Recorded Body height Body weight Body temperature Oxygen saturation Oxygen saturation in Arterial blood by Pulse oximetry Heart rate Systolic And Diastolic Provider Name and Address Organization Details Last Updated DateTime 3 190.5 cm 70627.0 1 g 98.9 [degF] 97 % 97 % 79 /min 135/81 mm[Hg] [facility] [place] 3 11:02:26 Social History Question Answer Notes LastModified by Feast Details LastModified Time Tobacco Smoking Status Current Every Day Smoker BETHANY Carmichael NT [facility] [place] 01/01/2023 11:20:23 What Is Your Level Of Caffeine Consumption? Moderate [email or web address] Information not available 01/01/2023 Which Illicit Or Recreational Drugs Have You Used? Marijuana [email or web address] Information not available 01/01/2023 At What Age Did You Start Smoking Tobacco? 14 [email or web address] Information not available 01/01/2023 How Much Tobacco Do You Smoke? 1 PPD [email or web address] Information not available 01/01/2023 Sex: Unknown Functional Status Question Answer Note LastModified by Organizat ion Details LastModified Time Do you use any illicit or recreational drugs? Yes [email or web address] Information not available 01/01/2023 What is your level of alcohol consumption? Occasional [email or web address] Information not available 01/01/2023 Mental Status None recorded. Family History Relationship Description Onset Age of this Age Resolved Age Notes LastModified by Organization Details LastModified Time Father No current problems or disability [email or web address] Not available 0 01/01/2023 11:19:32 Mother No current problems or disability [email or web address] Not available 0 01/01/2023 11:19:32 Medical History No medical history recorded. Past Encounters Encounter ID Performer Location Encounter Start Date Encounter Closed Date Diagnosis/Indication Diagnosis SNOMED-CT Code Diagnosis ICD10 Code Diagnosis IMO Codes Diagnosis Note [id number] Luz Maria Cooper MD [facility] [address] [facility] [place] [address] 01/01/2023 11:06:38 01/01/2023 12:01:33 Pulmonary emphysema 81875846 J43.9 Images and report of chest x-ray [...] basis. Tobacco de pendence caused by cigarettes 6417595473 3273172 F17.210 Patient counseled extensivel y to quit smoking and will continue follow this up and arrange for him to have nicotine supplement to help him in this process. Screening for malignant neoplasm of respiratory tract 795248658 Z12.2 The patient has participat ed in [...] or unexplaine d significan t weight loss). [id number] Luz Maria Cooper MD [facility] Pulmonolo gy [address] [facility] [place] [address] 04/10/2023 15:19:55 04/10/2023 15:43:45 Pulmonary emphysema 79378847 J43.9 Results of full PFTs with DLCO [...] basis. Tobacco de pendence caused by cigarettes 9385390911 5929242 F17.210 Patient counseled extensivel y to quit smoking and will continue follow this up and to continue with the use of nicotine supplement . Images and report of low-dose CT of the chest done recently were reviewed and discussed with the patient, there is no evidence of malignancy and will continue with annual testing. Screening for malignant neoplasm of respiratory tract 025281476 Z12.2 The patient has participat ed in [...] unexplaine d significan t weight loss). [facility] risk of polypharmacy 405523664 Z91.89 I had very lengthy discussion with patient regarding his inhalers use and it should be restricted to Trelegy once a day and Meseret only to use on a p.r.n. basis. And patient voiced understand ing and repeated the instructio ns correctly. [id number] Luz Maria Cooper MD [facility] [address] [facility] [place] [address] 08/15/2023 10:58:58 08/15/2023 11:22:39 Pulmonary emphysema 14827982 J43.9 Patient instructed to use his Trelegy daily.Laurie ent use Meseret on a p.r.n. basis.Laurie ent instructed to call if there is any new symptoms. Dyspnea on exertion 6084 5006 R06.09 Patient recommende d to exercise as tolerated and to use his Meseret on a p.r.n. basis. Tobacco de pendence caused by cigarettes 8947804229 7091818 F17.210 Patient counseled extensivel y to quit smoking and will continue follow this up. Will arrange for the patient to have nicotine supplement to help him in this process.Toni yanes to have his annual low-dose CT of the chest for lung cancer screening as scheduled in February 2024. Screening for malignant neoplasm of respiratory tract 035641374 Z12.2 The patient has participat ed in [...] significan t weight loss). Immunization advised 310 455155 Z71.9 Patient recommende d to receive flu [...] Member ID Guarantor Name 08/12/2023 1 [employer] [facility] (MEDICAID HMO) Ely Benson [id number] Ely Benson 04/10/2023 1 [employer] [facility] (MEDICAID HMO) Ely Benson [id number] Ely Benson 04/10/2023 1 [employer] [facility] (MEDICAID HMO) Ely Marcelino [id number] Ely Marcelino Notes Date Note Type Note [...] his teenage years. Luz Maria Cooper MD [address] [facility], [place], [address], [facility] [place] 01/18/2023 13:43:33 04/10/2023 text/html Patient presents to [...] Luz Maria Cooper MD [address], [place], [address], [facility] 04/10/2023 15:54:49 08/15/2023 text/html Patient presents to [...] Luz Maria Cooper MD [address], [place], [address], [facility] & [place] 08/15/2023 11:31:07
--- OUTSIDE RECORDS SUMMARY | 2025-07-20 06:42 | XMS_ITS | Patient Health Record ---
Author Organization [facility] Address [address] [place] [address] [address] [place] [address] Care Team Providers Care Worship Leader Name Role Phone Nicole Benoit APRN Unavailable [...] Notes Problem Degeneration of cervical intervertebral disc (43876376) Other cervical disc degeneration, unspecified cervical region (M50.30) Active confirmed Problem Long-term current use of drug therapy (984471587) Other long-term (current) drug therapy (Z79.899) Active confirmed Problem Cervical radiculopathy (89114144) cervical radiculopathy (M54.12) Active confirmed Plan Of Treatment No Information Insurance Providers Payer Name Payer Address Payer Phone Subscriber Number Group Number Insured Name Patient Relationship to Insured Coverage Start Date Coverage End Date [employer] [place] Plan [address] [place] [phone] [id number] CarlosA lberto Benson Self - patient is the insured 0 Medical (General) History Medical History History ICD Code Asthma arthritis Reflux Gallbladder Surgical History Surgery Date(Month/Year) Gallbladder Removal 2009
--- OUTSIDE RECORDS SUMMARY | 2025-07-20 06:42 | XMS_ITS | Clinical Summary ---
Author Organization [facility] Address [address] [place] [phone] Phone Care Team Providers Care High Energy Forming Equipment Operator Name Role Phone Unavailable Primary Care Provider [...]
--- NOTE | 2025-07-20 07:00 | MR_ITS ---
FINAL REPORT CLINICAL HISTORY: lateral sided pain since falling off a stoool bruising and swelling lateral side COMPARISON: None FINDINGS: Multiplanar and multisequence imaging of the right ankle was obtained without intravenous contrast. BONES/JOINT: There is subchondral edema in the posterolateral talar dome. No fracture is identified, and there is no overlying cartilage abnormality, favor this represents a contusion. No other foci of bone marrow edema are identified. LIGAMENTS: The anterior talofibular ligament, posterior talofibular ligament and calcaneofibular ligament are intact. The tibiofibular ligaments are intact. The medial ligaments are intact. TENDONS: The Achilles tendon is normal in size and signal intensity. The medial tendons are within normal limits. The peroneal tendons are intact. The extensor tendons are within normal limits. OTHER SOFT TISSUES: There is no significant joint effusion. Signal intensity within the sinus tarsi is preserved. The plantar fascia is normal in size and signal intensity. Remaining soft tissues are within normal limits. IMPRESSION: Subchondral edema in the posterolateral talar dome as described above, favor contusion. Early osteochondral lesion is not excluded. Reviewed, Interpreted and Dictated by Caitlin Meraz MD Transcribed by Rosalinda Kate Authenticated and [facility]
== END 2025-07-20 23:59 | disposition home or self-care (01) ==
LOC: RAD 06:41
PROVIDERS: PCP Nurse Practitioner Family; Visit Provider Physician Assistant
DX: S82.51XA Displaced fracture of medial malleolus of right tibia, initial encounter for closed fracture (principal); M25.371 Other instability, right ankle; R60.0 Localized edema; R93.6 Abnormal findings on diagnostic imaging of limbs; W08.XXXA Fall from other furniture, initial encounter
CPT/HCPCS: 73721